=== PATIENT | female | born 1965 | race Caucasian/White ===

== ENCOUNTER → 2019-08-30 09:35 | Outpatient (CLI) | payer OTHER ==
--- NOTE | 2019-08-31 16:04 | EC ---
PATIENT:LILIANE HOWARD DATE OF SERVICE: 08/30/19 SEX: F MEDICAL RECORD: [id number] DATE OF : 61 [facility] AGE OF PAT[facility]: 54 ADMISSION DATE: 08/30/19 REFERRING PHYSICIAN: INTERPRETING PHYSICIAN: NAVEED HICKS MD ECHOCARDIOGRAM REPORT ECHO CHARGES 4 ECHO COMPLETE Date: 08/30/19 CLINICAL DIAGNOSIS: MURMUR//CARDIOMYOPATHY/ ABNORMAL EKG H/O HTN ECHOCARDIOGRAPHIC MEASUREMENTS (adult normal given) AC root (d.<3.7cm) 3.2 cm LV Septum d (<1.2 cm> 1.3 cm Valve Excursion 1.2 cm LV Septum (systole) 2.0 cm Left Atria (s.<4.0cm> 4.9 cm LVPW d(<1.2cm) 1.5 cm RV (d.<2.3cm) 3.5 cm LVPW (sytole) 1.8 cm LV diastole(<5.6CM) 7.4 cm MV E-F(>70mm/sec) cm LV systole 6.0 cm LVOT Diameter 2.0 cm MV exc.(>10mm) cm Est.ejection fraction (50-75%) % DOPPLER: LVIT cm/sec A 130 cm/sec E 191 cm/sec LA cm/sec RVSP 71.0 mmHg LVOT 91.0 cm/sec AOP1/2T m/s Asc. Ao 487 cm/sec RVOT 104 cm/sec RA cm/sec PA 100 cm/sec AV Gradient Peak 95.0 mmHg AV Mean 68.2 mmHg AV Area 0.5 cm MV Gradient Peak 18.3 mmHg MV Mean 7.0 mmHg MV Area cm COMMENTS: OP - HC Head Of Acquisitions: 1 LALI NICKY Ring Conductor: 3 Dr. Boone TAPE# PACS Pericardial Effusion N DATE OF SERVICE: Adequate 2D, color flow, spectral Doppler, and M-mode. LVH is present. LV internal dimensions are normal. LV is mildly globally hypo with EF reduced, estimated at 35% to 40%. Aortic valve is calcified with restriction of leaflet motion. Peak gradient of 95 putting this in severe range. Left atrium is dilated at 4.9 cm. Mitral valve shows no prolapse. Moderate MR. Right-sided chambers are grossly normal. Mild TR. ECHOCARDIOGRAM REPORT [id number] LILIANE HOWARD TRANSINT:[id number] Voice Confirmation ID: [id number] DOCUMENT ID: [id number] NAVEED HICKS MD at 1604 CC: [id number] DICTATION DATE: 08/31/19 1318 BINDERY MACHINE TENDER: 08/31/19 1539 DEP CLI 08/30/19 [place] [id number] [place] [id number]
== END | disposition home or self-care (01) ==
LOC: D.HCCECHO 08-10 10:00
PROVIDERS: ATTEND Internal Medicine Interventional Cardiology
DX: I35.0 Nonrheumatic aortic (valve) stenosis (principal)

== ENCOUNTER 2020-01-03 11:29 | Outpatient (CLI) | payer OTHER ==
[~2020-01-03] VITALS: Ht 167.6 cm; Wt 126.2 kg
--- NOTE | ~2020-01-03 | HEMODYNAMI ---
PATIENT:LILIANE HOWARD MEDICAL RECORD: [id number] : 61 LOCATION:[facility] ADMISSION DATE: 01/03/20 Generatedon:01/03/202013:50 Patient name: LILIAEN HOWARD Patient #: [id number] SSN: [id number] : 1965 Date of study: 01/03/2020 Page: Of Hemodynamic Procedure Report Patient Data Patient Demographics Procedure consent was obtained First Name: LILIANE Gender: Female Last Name: ANITA : 1965 Middle Initial: HELADIO Age: 54 year(s) Patient #: [id number] Race: SSN: [id number] Additional ID: [id number] Contact details [address]: [address] [place] [address] State: [place] City: [place] Zip code: [address] Past Medical History Allergies: No known allergies Admission Admission Data Admission Date: 01/03/2020 Admission Time: 11:29 Arrival Date: 01/03/2020 Arrival Time: 0:00 Admit Source: Other Insurance Payor: [facility] #: [id number] Height (in.): 67 BSA: 2.32 (m2) Height (cm.): 170.18 BMI: 43.07 (kg/m2) Weight (lbs.): 275 Weight (kg.): 124.74 Lab Results Lab Result Date: 01/03/2020 Lab Result Time: 0:00 Biochemistry Name Units Result Min Max BUN mg/dl 21 --(----)-* 7 18 Creatinine mg/dl 0.8 --(-*--)-- 0.6 1.3 eGFR ml/min 78 *-(----)-- 90 120 NONAFRICAN CBC Name Units Result Min Max Hematocrit % 39.8 -*(----)-- 42 54 Hemoglobin g/dl 12.4 *-(----)-- 13.5 17.5 Procedure Procedure Types Cath Procedure Diagnostic Procedure [facility] w/Coronaries Sedation Charges Moderate Sedation up to 15 minutes Procedure Description Procedure Date Procedure Date: 01/03/2020 Procedure Start Time: 13:21 Procedure End Time: 13:43 Procedure Staff Name Function Gaston Trujillo MD Performing Physician Sammi Roger RT Monitor Delaney Strauss RN Nurse Megan English RT Scrub Procedure Data Cath Procedure Fluoroscopy Diagnostic fluoroscopy Total fluoroscopy Time: 9.1 time: 9.1 min min Diagnostic fluoroscopy Total fluoroscopy dose: 873 dose: 873 mGy mGy Contrast Material Contrast Material Type Amount (ml) Isovue 370 36 Entry Location Entry Primary Successful Side Size Upsize Upsize Entry Closure Levi ccessful Closure Location (Fr) 1 (Fr) 2 (Fr) Remarks Device Remarks Radial Right 6 Fr Mechanical artery Short Compression Estimated blood loss: 5 ml Diagnostic catheters Device Type Used For End Catheter Placement DIAGNOSTIC [place] 110cm 5 Procedure Fr catheter ([id number]) DIAGNOSTIC AR MOD 5Fr Procedure Catheter ([id number]) Procedure Complications No complications Procedure Medications Medication Administration Route Dosage 0.9% NaCl I.V. 100 ml/hr Oxygen etCO2 Nasal cannula 2 l/min Lidocaine 2% added to field 20 Heparin Flush Bag added to field 2 bags (1000units/500ml NS) Radial Cocktail added to field 1 syringe (Verapamil 2mg/Nitro 400mcg/Heparin 1500units) Versed I.V. 2 mg Fentanyl I.V. 50 mcg Hemodynamics Rest BSA: 2.32 (m2) HGB: 12.4 (g/dl) O2 Consumption: Estimated: 202.24 (ml/min) O2 Co nsumption indexed: Estimated:87.17 (ml/min/m) Heart Rate: 47 (bpm) Snapshots Pre Cath Intra NCS Post Cath Vital Signs Time Heart Resp SPO2 etCO2 NIBP (mmHg) Rhythm Pain Sedation Rate (ipm) (%) (mmHg) Status Level (bpm) 13:09:30 89 33 96 26 125/81(122) NSR 0 (11) 10(A) , No pain 13:14:29 95 34 96 29.4 Measuring NSR 0 (11) 10(A) , No pain 13:19:10 92 25 97 33.9 Time NSR 0 (11) 10(A) Exceeded , No pain 13:22:25 93 18 95 33.9 131/82(96) NSR 0 (11) 10(A) , No pain 13:26:29 95 23 96 30.9 127/84(94) NSR 0 (11) 10(A) , No pain 13:30:36 93 32 95 32.4 119/73(88) NSR 0 (11) 10(A) , No pain 13:34:40 91 33 96 30.2 118/79(91) NSR 0 (11) 10(A) , No pain 13:38:44 90 26 97 33.2 129/80(97) NSR 0 (11) 10(A) , No pain 13:42:50 93 26 93 28.6 128/82(107) NSR 0 (11) 10(A) , No pain Medications Time Medication Route Dose Verified Delivered Reason Notes E ffectiveness by by 13:07:58 0.9% NaCl I.V. 100 Gaston Raia used for ml/hr Ronnie Carlos A procedure MD FRAGA 13:08:04 Oxygen etCO2 2 l/min Gaston Raia used for Nasal Ronnie Carlos A procedure cannula RN 13:08:08 Lidocaine 2% added 20ml Gaston Feldman for local to vial Ronnie Ronnie anesthetic field MD GAMINO 13:08:12 Heparin Flush added 2 bags Gaston Feldman used for Bag to Ronnie Ronnie procedure (1000units/500ml field MD GAMINO NS) 13:08:23 Radial Cocktail added 1 Gaston Feldman used for (Verapamil to syringe Ronnie Ronnie procedure 2mg/Nitro field MD GAMINO 400mcg/Heparin 1500units) 13:16:54 Versed I.V. 2 mg Gaston Raia for Ronnie Carlos A sedation MD FRAGA 13:17:00 Fentanyl I.V. 50 mcg Gaston Baltazar for Ronnie Carlos A sedation MD FRAGApower systems engineer Log Time Note 12:21:21 Informed consent obtained and on chart 12:22:14 Patient allergic to No known allergies 12:24:12 Diagnostic Cath Status : Elective 12:24:48 Arrival Date: 01/03/2020 12:00:00 AM 12:24:49 Admit Source: Other 12:25:02 Patient Height : 67 inches 12:25:06 Patient Weight : 275 lbs 12:25:15 Insurance Payor : [facility] 12:50:34 Lab Result : eGFR NONAFRICAN 78 ml/min 12:50:34 Lab Result : Hemoglobin 12.4 g/dl 12:50:34 Lab Result : BUN 21 mg/dl 12:50:34 Lab Result : Creatinine 0.8 mg/dl 12:50:34 Lab Result : Hematocrit 39.8 % 12:52:43 Risk of Mortality: 0.1 12:52:47 Risk of blood transfusion: 0.2 12:52:50 Risk of ADEN: 0.4 12:52:51 Alarms reviewed by R. N. 12:52:52 Sharps counted by scrub and verified by R.N. 12:52:56 Stress Test: no; N/A ? 12:52:58 Lab results completed and on chart. 12:53:14 H&P Date Dictated: 12/21/2019 Within 30 days and on chart.. 12:53:15 Pre-procedure instructions explained to patient. 12:53:16 Pre-op teaching completed and patient verbalized understanding. 12:53:18 Family in patients room. 12:53:20 Patient NPO since Midnight. 12:53:30 Procedure Status Elective Heart Cath (OP). 12:53:34 Megan English RT(R) (CV) sent for patient. Start room use. 12:53:36 Time tracking: Regular hours (M-F 7:00 - 5:00) 12:53:41 Plan of Care:Hemodynamics will remain stable., Cardiac rhythm will remain stable., Comfort level will be maintained., Respiratory function will remain adequate., Patient/ family verbilizes understanding of procedure., Procedure tolerated without complication., Recovers from procedure without complications.. 13:00:09 Patient received from Pre/Post Procedure Room to CCL 1 Alert and oriented. Tansferred to table in Supine position. 13:00:28 Warm blankets applied, and bridget hugger turned on for patient comfort. 13:00:28 Correct patient and procedure confirmed by team. 13:00:30 ECG and BP/O2 sat monitors applied to patient. 13:07:48 Vital chart was started 13:07:58 0.9% NaCl 100 ml/hr I.V. was administered by Delaney Strauss RN; used for procedure; Verbal order read back and verified. 13:08:04 Oxygen 2 l/min etCO2 Nasal cannula was administered by Delaney Carlos A RN; used for procedure; Verbal order read back and verified. 13:08:08 Lidocaine 2% 20ml vial added to field was administered by Gaston Trujillo MD; for local anesthetic; Verbal order read back and verified. 13:08:12 Heparin Flush Bag (1000units/500ml NS) 2 bags added to field was administered by Gaston Trujillo MD; used for procedure; Verbal order read back and verified. 13:08:23 Radial Cocktail (Verapamil 2mg/Nitro 400mcg/Heparin 1500units) 1 syringe added to field was administered by Gaston Trujillo MD; used for procedure; Verbal order read back and verified. 13:09:50 Full Disclosure recording started 13:09:54 Is the patient allergic to Iodine/contrast media? No. 13:09:57 Was the patient premedicated? N/A 13:09:59 Is patient on blood thinner?No 13:10:00 Patient diabetic? No. 13:10:01 If diabetic: On Metformin? N/A 13:10:04 Patient not . Patient is over age 55. 13:10:05 ----Pre-sedation anethsthesia assessment.---- 13:10:08 Previous problem with sedation/anesthesia? No ? 13:10:09 Snore? Yes 13:10:10 Sleep apnea? No 13:10:12 Deviated septum? No 13:10:14 Opens mouth fully? Yes 13:10:15 Sticks out tongue? Yes 13:10:17 Airway obstruction? No ? 13:10:25 Dentures? Yes TOP IN TIGHT 13:10:53 Pre procedure: right dorsailis pedis pulse 2+ Normal; easily identifiable; not easily obliterated 13:10:58 Patient pain scale 0/10 ?. 13:11:01 Modified German's test Ulnar < 7 seconds 13:11:08 IV patent on arrival in left antecubital with 0.9% NaCl at O. 13:11:13 Right Radial & Right Groin area was prepped with chlora-prep and draped in sterile fashion 13:11:17 Use device set Radial Dx or PCI 13:11:19 ACIST Syringe (40024) opened to sterile field. 13:11:20 Medline Cath Pack ([id number]) opened to sterile field. 13:11:20 Bag Decanter (2002) opened to sterile field. 13:11:21 ACIST Hand Control (35452) opened to sterile field. 13:11:21 ACIST Manifold (87045) opened to sterile field. 13:11:22 MBrace Wrist Support ([id number]) opened to sterile field. 13:11:24 EMERALD Guide Wire (914-851) opened to sterile field. 13:11:25 SHEATH 6FR RAIN (6550380) opened to sterile field. 13:14:52 --------ALL STOP TIME OUT------ 13:14:52 Final Timeout: patient, procedure, and site verified with staff and physician. All members of the team are in agreement. 13:14:54 Right Radial & Right Groin site verified by team. 13:14:58 Fire Safety Assessment: A--An alcohol-based skin anteseptic being used preoperatively., C--Open oxygen or nitrous oxide is being used., D--An ESU, laser, or fiber-optic light is being used. 13:15:02 Physical assessment completed. ASA score P 2 - A patient with mild systemic disease as per Gaston Trujillo MD. 13:15:06 2) 60-89 Mildly reduced kidney function, and other findings (as for stage 1) point to kidney disease. 13:15:09 Maximum allowable contrast dose (3.7 X eGFR X 0.75)216 ml. 13:15:13 Sedation plan: IV Moderate Sedation Medication:Versed, Fentanyl 13:15:47 Rhythm: sinus rhythm 13:16:29 Baseline sample Acquired. 13:16:54 Versed 2 mg I.V. was administered by Delaney Strauss RN; for sedation; Verbal order read back and verified. 13:17:00 Fentanyl 50 mcg I.V. was administered by Delaeny Strauss RN; for sedation; Verbal order read back and verified. 13:19:39 Baseline sample Acquired. 13:21:05 Procedure started. 13:21:22 Local anesthetic to right radial artery with Lidocaine 2% by Gaston Trujillo MD.INITIAL ACCESS ONLY 13:25:48 A 6 Fr Short sheath was inserted into the Right Radial artery 13:26:27 A DIAGNOSTIC [place] 110cm 5 Fr catheter (656138) was advanced over the wire and used for Procedure. 13:28:37 LCA angiography performed. 13:29:03 Injector settings: Ml/sec: 3, Volume: 6, 13:30:13 Catheter exchanged over wire. 13:30:31 A DIAGNOSTIC AR MOD 5Fr Catheter ([id number]) was advanced over the wire and used for Procedure. 13:31:37 RCA angiography performed. 13:32:00 ACCDominant side:Left 13:33:48 ROADRUNNER .035 260 glide wire (Z89529) opened to sterile field. 13:37:27 ROADRUNNER GLIDEWIRE wire advanced. 13:37:31 GUIDE 5FR AL2.0 catheter (OW5DM88) opened to sterile field. 13:40:55 UNABLE TO CANNULATE ACROSS THE VALVE NO LV DONE. 13:40:59 Catheter removed. 13:41:24 ZEPHYR REGULAR TR BAND (813646) opened to sterile field. 13:41:31 Sheath removed intact; hemostasis achieved with Mechanical Compression to the Right Radial artery. 13:41:33 Procedure ended.(Physican Out) 13:41:53 Fluoroscopy time 09.10 minutes. 13:42:01 Fluoroscopy dose: 873 mGy 13:42:01 Flurop Dose total: 873 13:42:09 Dose Area Product 72082 mGy/cm. 13:42:14 Contrast amount:Isovue 370 36ml. 13:42:16 Maximum allowable dose exceeded? No. 13:42:18 Sharps counted by scrub and verified by R.N. 13:42:22 [place] band inflated with 10cc of air. 13:42:24 Post Procedure Pulses reassessed and unchanged 13:42:27 Post procedure: right dorsailis pedis pulse 2+ Normal; easily identifiable; not easily obliterated. 13:42:30 Post-procedure physical assessment completed. ASA score P 2 - A patient with mild systemic disease as per Gaston Trujillo MD. 13:42:33 Post procedure rhythm: unchanged. 13:42:36 Estimated blood loss: 5 ml 13:42:37 Post procedure instruction explained to patient.Patient verbalizes understanding. 13:42:38 Patient needs reinforcement of post procedure teaching. 13:43:01 Procedure type changed to Cath procedure, Diagnostic procedure, LHC, LHC w/Coronaries, Sedation Charges, Moderate Sedation up to 15 minutes 13:43:27 Procedure and supply charges have been captured, reviewed, submitted and are correct. 13:43:30 Procedure Complication : No complications 13:43:32 Vital chart was stopped 13:43:34 [facility] Findings: mild to moderate CAD (<70%) 13:43:38 Operative report dictated upon procedure completion. 13:43:38 See physician's report for complete and final results. 13:43:42 Report given to Pre/Post Procedure Room. 13:43:46 Patient transfered to Pre/Post Procedure Room with Stretcher. 13:43:48 Procedure ended. 13:43:48 Full Disclosure recording stopped 13:43:53 End room use (Document Last) 13:44:12 End room use (Document Last) 13:44:31 End room use (Document Last) Device Usage Item Name Manufacture Quantity Catalog Hospital Part Current Minima l Lot# / Number Charge Number Stock Stock Serial# Code ACIST Acist 1 21901 813719 377046 237624 20 Syringe Medical (78705) Systems Inc Medline Medline 1 [id number] 663151 40102 670182 5 Cath Pack ([id number]) Bag Microtek 1 2001S 456463 24130 596041 5 Decanter Medical Inc. () ACIST Hand Acist 1 33914 944107 745727 251412 5 Control Medical (80254) Systems Inc ACIST Acist 1 73734 620255 607999 605727 5 Manifold Medical (98531) Systems Inc MBrace Advanced 1 140-0250-00 314008 88393 669723 5 Wrist Vascular Support Dynamics (475691376) EMERALD Cardinal 1 502-455 103276 598133 372728 5 Guide Wire Health (502-455) SHEATH 6FR Cardinal 1 2023524 346599 0824383 432455 5 [facility] (0180269) DIAGNOSTIC Terumo 1 40-5013 748993 616820 089260 5 [place] 110cm 5 Fr catheter (801577) DIAGNOSTIC Cardinal 1 [id number] 934232 932693 005031 15 AR MOD 5Fr Health Catheter (492423Y) [facility] 1 M63090 100083 116322 585005 5 .035 260 glide wire (H72525) GUIDE 5FR Medtronic 1 [id number] 929308 435212 090810 1 AL2.0 catheter (PI8QZ23) ZEPHYR Cardinal 1 730891 049269 8407043 495789 5 REGULAR TR Health BAND (009999) Signature Audit Cath[place]in Stage Time Signature Unsigned Intra-Procedure 01/03/2020 Sammi Roger 1:44:12 PM RT(R) Intra-Procedure 01/03/2020 Delaney Strauss 1:44:31 PM RN Intra-Procedure 01/03/2020 Gaston Peter 1:50:15 PM Deon [facility] [address] [place] [address]
[2020-01-03] MEDS ORDERED: LOSARTAN-HCTZ1 EAC1 PO (11:52)
[2020-01-03] MEDS ORDERED: BAYER CHEWABLE81 MG PO (11:52)
[2020-01-03] MEDS ORDERED: FER-IN-SOL DROP50 ML (11:54)
[2020-01-03] MEDS ORDERED: VOLTAREN75 MG PO (11:54)
[2020-01-03 12:09] VITALS: BP 130/85; Ht 167.6 cm; Wt 126.2 kg
[2020-01-03 12:27] LABS: BASOPHILS 0.5 % (0-2); HEMATOCRIT 39.8 % (36.0-48.0); HEMOGLOBIN 12.4 g/dL (12-16); IMMATURE GRANULOCYTES 0.1 % (0-5); LYMPHOCYTES 16.7 % (15-50); MCH 25.3 pg (26.0-34.0); MCHC 31.2 g/dL (31.0-37.0); MCV 81.1 fL (80.0-100.0); MEAN PLATELET VOLUME 10.5 fL (7.4-10.4); MONOCYTES 7.6 % (2-11); NEUTROPHILS 74.1 % (40-80); PLATELET COUNT 284 10x3/uL (130-400); RBC 4.91 10x6/uL (4.00-5.40); RDW 17.2 % (11.5-14.5); WBC 7.8 10x3/uL (4.8-10.8)
[2020-01-03 12:43] LABS: ALT (SGPT) 35 U/L (10-68); CALC OSMOLALITY 275 mosm/kg (275-300); CALCIUM 9.1 mg/dL (8.5-10.1); CARBON DIOXIDE 27.7 mmol/L (21.0-32.0); CHLORIDE - SERUM 102 mmol/L (98-107); CHOL - HDL RATIO 4.3 ratio (2.3-4.1); CHOLESTEROL, TOTAL 137 mg/dL (0-200); CREATININE - SERUM 0.8 mg/dL (0.6-1.3); GLUCOSE 117 mg/dL (74-106); HDL CHOLESTEROL 32 mg/dL (32-96); LDL CHOLESTEROL 86 mg/dL (0-100); LDL-HDL RATIO 2.7 ratio (1.5-3.5); POTASSIUM - SERUM 4.1 mmol/L (3.5-5.1); SODIUM 136 mmol/L (136-145); TRIGLYCERIDE 96 mg/dL (30-200); UREA NITROGEN 21 mg/dL (7-18); eGFR NON AFRICAN AMERICAN 78 mL/min (90-120)
--- NOTE | 2020-01-03 13:58 | NUR ---
DR. HICKS IN TO SPEAK WITH PT . DR. DAWKINS OFFICE CONTACTED FOR APPT.
--- NOTE | 2020-01-03 14:00 | NUR ---
REC'D TO ROOM 3 VIA STRETHCER, FROM SPEECH THERAPY ASSISTANT. MONITORS ESTAB. PT DROWSY, AT BS. SEE BEVERAGE DISTILLER.
--- NOTE | 2020-01-03 14:16 | NUR ---
R WRIST SITE C/D/I, NO S/S BLEEDING OR HEMATOMA. MARQUISE WITH DR. MCKNIGHT IN TO TALK TO PT - FOLLOW UP APPT CARD GIVEN TO PT.
--- NOTE | 2020-01-03 14:45 | NUR ---
R WRIST SITE C/D/I. 2 CC AIR REMOVED FROM Z BAND. VSS. PT DENIES NEEDS. ALARMS ON AND C/L IN REACH.
--- NOTE | 2020-01-03 15:00 | NUR ---
TOTAL OF 5CC AIR REMOVED FROM Z BAND. NO S/S BLEEDING OR HEMATOMA.
--- NOTE | 2020-01-03 15:15 | NUR ---
PT UP TO BR WITH ASSIST. R WRIST SITE C/D/I. GAIT STEADY. BACK TO BED, 2 MORE CC AIR REMOVED. WILL CONT CLOSE MONITORING.
--- NOTE | 2020-01-03 15:30 | NUR ---
ALL AIR REMOVED FROM Z BAND. NO S/S BLEEDING. PIV D/C'D INTACT - DSG APPLIED. PT ALLOWED UP TO GET DRESSED.
--- NOTE | 2020-01-03 15:47 | NUR ---
Z BAND OFF, NO BLEEDING. DSG AND ARM BOARD APPLIED. ALL DISCHARGE INSTRUCTIONS REVIEWED WITH PT AND . PT D/C'D VIA WC TO PRIVATE VEHICLE WITH ALL PAPER WORK AND BELONGINGS.
--- NOTE | 2020-01-04 08:16 | OP ---
PATIENT NAME: LILIANE HOWARD MEDICAL RECORD: [id number] :61 LOCATION:D.CAT ADMISSION DATE: SURGEON: NAVEED HICKS MD DATE OF OPERATION: 01/03/2020 PROCEDURE: Left heart catheterization, selective coronary angiography, right radial approach. CATHETERS: Radial sheath, Hampton catheter, AR, as well as an AL. Procedure was well tolerated. The patient was returned to [place]. Sheath was removed. TR band placed. FINDINGS: Left ventriculography not performed. Unable to cross the aortic valve, despite using AR, AL, indwelling Hampton catheter, and a regular wire. CORONARY ANATOMY: LEFT MAIN: Left main is free of disease. LAD: Small vessel, free of disease. CIRCUMFLEX: Left dominant system. Circumflex free of disease as marginal system. RIGHT CORONARY ARTERY: Rudimentary, free of disease. IMPRESSION: No critical . No evidence of obstructive coronary artery disease. TRANSINT:[id number] Voice Confirmation ID: [id number] DOCUMENT ID: [id number] NAVEED HICKS MD at 0816 CC: [id number] DICTATION DATE: 01/03/20 1353 CREDENTIALS SPECIALIST: 01/03/20 2204 DEP CLI 01/03/20 [facility] [address] [facility], [place] [address]
== END 2020-01-03 15:47 | disposition home or self-care (01) ==
LOC: D.CATH 11:29
PROVIDERS: ATTEND Internal Medicine Interventional Cardiology
DX: I49.3 Ventricular premature depolarization (principal); I35.0 Nonrheumatic aortic (valve) stenosis; I10 Essential (primary) hypertension; E78.5 Hyperlipidemia, unspecified

== ENCOUNTER 2020-01-10 08:34 | Outpatient (CLI) | payer OTHER ==
[~2020-01-10] VITALS: Ht 167.6 cm; Wt 124.5 kg
--- NOTE | ~2020-01-10 | HEMODYNAMI ---
PATIENT:LILIANE HOWARD MEDICAL RECORD: [id number] : 61 LOCATION:[facility] ADMISSION DATE: 01/10/20 Generatedon:01/10/202012:42 Patient name: LILIANE HOWARD Patient #: [id number] SSN: [id number] : 1965 Date of study: 01/10/2020 Page: Of Hemodynamic Procedure Report Patient Data Patient Demographics Procedure consent was obtained First Name: LILIANE Gender: Female Last Name: ANITA : 1965 Middle Initial: HELADIO Age: 54 year(s) Patient #: [id number] Race: SSN: [id number] Additional ID: [id number] Contact details [address]: [address] [place] [address] State: [place] City: [place] Zip code: [address] Past Medical History Allergies: No known allergies Admission Admission Data Admission Date: 01/10/2020 Admission Time: 8:34 Height (in.): 65.75 BSA: 2.29 (m2) Height (cm.): 167 BMI: 44.82 (kg/m2) Weight (lbs.): 275.58 Weight (kg.): 125 Procedure Procedure Types Cath Procedure Diagnostic Procedure NICOLLE Procedure Description Procedure Date Procedure Date: 01/10/2020 Procedure Start Time: 11:57 Procedure Staff Name Function Gaston Trujillo MD Performing Physician Parveen Torrez LEGAL MEDIATOR Additional personnel Annie Olson RT Monitor Delaney Strauss RN Nurse Juan Jose Fagan Residential Recycle Driver Procedure Data Cath Procedure Fluoroscopy Diagnostic fluoroscopy Total fluoroscopy Time: 0 time: 0 min min Diagnostic fluoroscopy Total fluoroscopy dose: 0 dose: 0 mGy mGy Estimated blood loss: 0 ml Procedure Complications No complications Procedure Medications Medication Administration Route Dosage 0.9% NaCl I.V. 100 ml/hr Oxygen etCO2 Nasal cannula 2 l/min Hurricaine [place] P.O. 2 Sprays Refer to Anesthesia Notes for Sedation Medications Hemodynamics Rest BSA: 2.29 (m2) HGB: 12.4 (g/dl) O2 Consumption: Estimated: 245.91 (ml/min) O2 Consumption indexed: Estimated:107.38 (ml/min/m) Heart Rate: 100 (bpm) Snapshots Pre Cath Intra NCS Post Cath Vital Signs Time Heart Resp SPO2 etCO2 NIBP (mmHg) Rhythm Pain Sedation Rate (ipm) (%) (mmHg) Status Level (bpm) 12:33:10 98 12 97 22.6 266/181(231) NSR 0 (11) 10(A) , No pain 12:35:27 100 21 97 24.8 121/108(116) NSR 0 (11) 5(A) , No pain 12:38:48 91 34 93 30.8 110/54(82) NSR 0 (11) 5(A) , No pain Medications Time Medication Route Dose Verified Delivered Reason Notes Effecti veness by by 12:27:54 0.9% NaCl I.V. 100 Gaston Baltazar used for ml/hr St Deon Strauss procedure MD FRAGA 12:28:02 Oxygen etCO2 2 Gaston Raia used for Nasal l/min St Deon Strauss procedure cannula MD FRAGA 12:28:15 Hurricaine P.O. 2 Gaston Torresyla for local [place] Sprays St Deon Strauss anesthetic MD FRAGA 12:28:23 Refer to Gaston Saini Anesthesia St Deon stephenson MD, CRNA Sedation Medications Procedure Log Time Note 12:00:36 Informed consent obtained and on chart 12:02:09 Procedure Status NICOLLE. 12:02:15 Time tracking: Regular hours (M-F 7:00 - 5:00) 12:02:19 Plan of Care:Hemodynamics will remain stable., Cardiac rhythm will remain stable., Comfort level will be maintained., Respiratory function will remain adequate., Patient/ family verbilizes understanding of procedure., Procedure tolerated without complication., Recovers from procedure without complications.. 12:03:38 Delaney Strauss RN sent for patient. Start room use. 12:04:02 H&P Date Dictated: 12/21/2019 Within 30 days and on chart., H&P Addendum completed by physician on day of procedure. (MUST COMPLETE FOR ALL OUTPATIENTS). 12:04:10 Patient allergic to No known allergies 12:17:31 Patient Weight : 275.58 lbs 12:17:35 Patient Height : 65.75 inches 12:22:43 Parveen Torrez CRNA present and monitoring patient for TIVA. 12::54 Patient arrived from Pre/Post Procedure Room to CCL 3. Patient remains on bed/stretcher for procedure. 12::55 Warm blankets applied, and bridget hugger turned on for patient comfort. 12::56 Correct patient and procedure confirmed by team. 12::56 ECG and BP/O2 sat monitors applied to patient. 12:: Vital chart was started 12::54 0.9% NaCl 100 ml/hr I.V. was administered by Delaney Strauss RN; used for procedure; Verbal order read back and verified. 12:28:02 Oxygen 2 l/min etCO2 Nasal cannula was administered by Delaney Strauss RN; used for procedure; Verbal order read back and verified. 12:28:15 Hurricaine [place] 2 Sprays P.O. was administered by Delaney Strauss RN; for local anesthetic; Verbal order read back and verified. 12::23 Refer to Anesthesia Notes for Sedation Medications was administered by Parveen Torrez CRNA; ; Verbal order read back and verified. 12::37 Baseline sample Acquired. 12::42 Rhythm: sinus tachycardia 12::44 Full Disclosure recording started 12::44 Pre-procedure instructions explained to patient. 12::44 Pre-op teaching completed and patient verbalized understanding. 12:28:46 Family in patients room. 12:28:48 Patient NPO since Midnight. 12:28:52 Is the patient allergic to Iodine/contrast media? No. 12:28:53 Is patient on blood thinner?No 12:28:56 Patient diabetic? No. 12:28:59 Previous problem with sedation/anesthesia? No ? 12:29:00 Snore? Yes 12:29:01 Sleep apnea? No 12:29:03 Deviated septum? No 12:29:03 Opens mouth fully? Yes 12:29:05 Sticks out tongue? Yes 12:29:07 Airway obstruction? No ? 12:29:12 Dentures? Yes OUT 12:29:21 IV patent on arrival in left hand with 0.9% NaCl at [facility]. 12:29:25 Lab results completed and on chart. 12:29:28 Alarms reviewed by R. N. 12::32 Sharps counted by scrub and verified by R.N. 12:29:36 --------ALL STOP TIME OUT------ ::36 Final Timeout: patient, procedure, and site verified with staff and physician. All members of the team are in agreement. 12::42 Physical assessment completed. ASA score P 3 - A patient with severe systemic disease as per Gaston Trujillo MD. 12:29:46 Sedation plan: TIVA Medication:Propofol 12:30:09 NICOLLE 12:30:12 Juan oJse [place] Patient Accounts Manager present for NICOLLE. 12:30:16 NICOLLE started. 12:36:31 NICOLLE completed. 12:36:35 Procedure ended.(Physican Out) 12:37:34 Fluoroscopy time 00.00 minutes. 12:37:36 Fluoroscopy dose: 0 mGy 12:37:36 Flurop Dose total: 0 12:37:38 Dose Area Product 0 mGy/cm. 12:38:48 Post-procedure physical assessment completed. ASA score P 3 - A patient with severe systemic disease as per Gaston Trujillo MD. 12:38:51 Post procedure rhythm: sinus rhythm 12:38:53 Estimated blood loss: 0 ml 12:38:54 Post procedure instruction explained to patient.Patient verbalizes understanding. 12:38:55 Patient needs reinforcement of post procedure teaching. 12:39:10 Procedure and supply charges have been captured, reviewed, submitted and are correct. 12:39:14 Procedure Complication : No complications 12:40:01 NICOLLE Findings: other (see operative note) 12:41:23 Vital chart was stopped 12:41:26 Operative report dictated upon procedure completion. 12:41:26 See physician's report for complete and final results. 12:41:28 Report given to Pre/Post Procedure Room. 12:41:30 Patient transfered to Pre/Post Procedure Room with Bed. 12:41:35 End room use (Document Last) 12:41:46 End room use (Document Last) 12:42:09 End room use (Document Last) Signature Audit [place] Stage Time Signature Unsigned Intra-Procedure 01/10/2020 Annie Olson 12:41:46 PM RT(R) Intra-Procedure 01/10/2020 Delaney Strauss 12:42:10 PM RN Intra-Procedure 01/10/2020 Gaston Peter 12:42:33 PM Deon GAMINO [facility] [address] [place] [address]
[~2020-01-10 08:34] MED LIST: BAYER CHEWABLE81 MG PO; FER-IN-SOL DROP50 ML; LOSARTAN-HCTZ1 EAC1 PO; VOLTAREN75 MG PO
[2020-01-10 11:41] VITALS: BP 113/74; Ht 167.6 cm; Wt 124.5 kg
[2020-01-10 12:10] LABS: ANION GAP 12.4 mmol/L (8-16); CALCIUM 9.5 mg/dL (8.5-10.1); CARBON DIOXIDE 26.6 mmol/L (21.0-32.0); CREATININE - SERUM 0.9 mg/dL (0.6-1.3)
[2020-01-10 12:11] LABS: HEMATOCRIT 41.5 % (36.0-48.0); HEMOGLOBIN 12.9 g/dL (12-16); LYMPHOCYTES 14.3 % (15-50); MCH 24.7 pg (26.0-34.0); MCHC 31.1 g/dL (31.0-37.0); MCV 79.3 fL (80.0-100.0); MEAN PLATELET VOLUME 10.7 fL (7.4-10.4); NEUTROPHILS 79.9 % (40-80); PLATELET COUNT 276 10x3/uL (130-400); RBC 5.23 10x6/uL (4.00-5.40); RDW 16.7 % (11.5-14.5); WBC 8.8 10x3/uL (4.8-10.8)
--- NOTE | 2020-01-10 12:45 | NUR ---
REC TO ROOM VIA STRETCHER FROM PROTECTIVE SIGNAL OPERATOR. MONITORING INITIATED. HR NSR 87, RR 20, SAT 98% 2LNC, BP 98/68
--- NOTE | 2020-01-10 13:15 | NUR ---
BP 103/67, NSR 84, CHIQUITA SIPS OF WATER AND ICE CHIPS WITHOUT DIFFICULTY. DECLINES FOOD AT THIS TIME.
--- NOTE | 2020-01-10 13:37 | NUR ---
MONITORING DC, IV DC TIP INTACT. DRESSING W HELP OF .
--- NOTE | 2020-01-10 13:45 | NUR ---
DISCHARGE TEACHING REVIEWED W AND PT. DC HOME VIA WHEELCHAIR TO PRIVATE VEHICLE. PT HAS ALL BELONGINGS.
--- NOTE | 2020-01-11 10:37 | TEE ---
PATIENT:LILIANE HOWARD MEDICAL RECORD: [id number] LOCATION:D.[facility] AGE OF PATIENT: 54 ADMISSION DATE: 01/10/20 SEX: F REFERRING PHYSICIAN: INTERPRETING PHYSICIAN: NAVEED HICKS MD TRANSESOPHAGEAL ECHOCARDIOGRAM Date: 01/10/20 NICOLLE CHARGE Y INDICATIONS: BICUSPID AORTIC VALVE/AI/ MR/CARDIOMYOPATHY PREMEDICATIONS: PATIENT'S RESPONSE PROCEDURE DOPPLER MEASUREMENTS: LVIT LA PA RA LVOT RVOT Asc. Ao AV Gradient Peak AV Mean AV Area MV Gradient Peak MV Mean MV Area INTERPRETATION: Doppler: 2-D: COLOR FLOW DOPPLER NORMAL SALINE STUDY: MISCELLANOUS: DIAGNOSIS: PLAN: Ux Specialist:3 Dr. Boone Groover And Turner: 1 LALI SAUNDERS COMMENTS: DATE OF SERVICE: 01/10/2020 TRANSESOPHAGEAL NOTE DESCRIPTION OF PROCEDURE: After general sedation with TIVA via anesthesia, transesophageal Omniplane probe was placed in the distal esophagus and the proximal stomach without difficulty. FINDINGS: LVH appears present. LV internal dimensions are mildly dilated. LV TRANSESOPHAGEAL ECHOCARDIOGRAM REPORT [id number] ANITASANDERSON is globally hypokinetic with reduced EF 30% to 35%. Aortic valve obviously bicuspid with restriction of valve motion to critical degree. Trivial AI. Color flow imaging, left atrium appears mildly dilated. Mitral valve shows no prolapse with moderate severe MR. Right-sided chambers appear grossly normal. Moderate MR. At the end of the procedure, probe was turned posterior and this showed no atherosclerotic debris in the descending aorta. TRANSINT:[id number] Voice Confirmation ID: [id number] DOCUMENT ID: [id number] at 1037 CC: [id number] DICTATION DATE: 01/10/20 1246 NON FERROUS MATERIAL HANDLER: 01/10/20 1945 DEP CLI 01/10/20 [place] [address]
== END 2020-01-10 13:45 | disposition home or self-care (01) ==
LOC: D.CATH 08:34 → D.ECHO 08:34 → D.CATH 13:45
PROVIDERS: Internal Medicine Interventional Cardiology; ATTEND Thoracic Surgery (Cardiothoracic Vascular Surgery)
DX: I35.0 Nonrheumatic aortic (valve) stenosis (principal); I34.0 Nonrheumatic mitral (valve) insufficiency; I42.0 Dilated cardiomyopathy; I49.3 Ventricular premature depolarization; I10 Essential (primary) hypertension; E78.5 Hyperlipidemia, unspecified

== ENCOUNTER 2020-01-11 11:44 | Inpatient (IN) | payer OTHER ==
[~2020-01-11] VITALS: Ht 167.6 cm; Wt 138.2 kg
[2020-01-12] MEDS ORDERED: STOOL SOFTENER100 M1 PO (08:14)
[2020-01-12 10:32] LABS: HEMATOCRIT 42.8 % (36.0-48.0); HEMOGLOBIN 13.3 g/dL (12-16); MCH 24.8 pg (26.0-34.0); MCHC 31.1 g/dL (31.0-37.0); MCV 79.9 fL (80.0-100.0); MEAN PLATELET VOLUME 10.5 fL (7.4-10.4); NEUTROPHILS 78.5 % (40-80); PLATELET COUNT 282 10x3/uL (130-400); RBC 5.36 10x6/uL (4.00-5.40); RDW 16.9 % (11.5-14.5); WBC 9.4 10x3/uL (4.8-10.8)
[2020-01-12 10:41] LABS: ALBUMIN 3.6 g/dL (3.4-5.0); ANION GAP 13.3 mmol/L (8-16); BILIRUBIN - TOTAL 0.79 mg/dL (0.2-1.3); CALCIUM 9.4 mg/dL (8.5-10.1); CARBON DIOXIDE 28.8 mmol/L (21.0-32.0); PHOSPHOROUS 3.9 mg/dL (2.5-4.9); POTASSIUM - SERUM 4.1 mmol/L (3.5-5.1); PROTEIN - SERUM 7.7 g/dL (6.4-8.2); T4 THYROXIN - FREE 1.63 ng/dL (0.76-1.46); THYROID STIMULATING HORMONE 2.17 uIU/mL (0.36-3.74); URIC ACID 6.2 mg/dL (2.6-7.2)
[2020-01-12 10:59] LABS: INR 1.06 (0.85-1.17); PROTIME 13.1 SECONDS (11.6-15.0)
[2020-01-12 11:01] LABS: APTT 26.5 SECONDS (22.8-39.4)
[2020-01-12 11:02] LABS: BACTERIA MODERATE /hpf (NEGATIVE); BILIRUBIN NEGATIVE (NEGATIVE); GLUCOSE NEGATIVE (NEGATIVE); KETONE NEGATIVE (NEGATIVE); NITRITE NEGATIVE (NEGATIVE); RED CELLS - URINE OCC /hpf (0-5); SPECIFIC GRAVITY 1.015 (1.005-1.020)
[2020-01-13 14:00] LABS: BILIRUBIN NEGATIVE (NEGATIVE); GLUCOSE NEGATIVE (NEGATIVE); KETONE NEGATIVE (NEGATIVE); NITRITE NEGATIVE (NEGATIVE); RED CELLS - URINE 0-5 /hpf (0-5); SPECIFIC GRAVITY 1.015 (1.005-1.020); UROBILINOGEN NORMAL (NORMAL); WHITE CELLS - URINE RARE /hpf (NEGATIVE)
[2020-01-13 14:01] LABS: BACTERIA FEW /hpf (NEGATIVE); EPITHELIAL CELLS RARE /hpf (0-5); HYALINE CAST RARE /lpf (NONE SEEN)
[2020-01-18] VITALS (49 sets, daily range): BP systolic 94–129; BP diastolic 55–93; BMI 44.1; BMI 45.1
[2020-01-18] MEDS ORDERED: SMZ-TMP DS 800-1 TAB PO (05:44)
[2020-01-18 10:37] LABS: INR 1.59 (0.85-1.17); PROTIME 18.8 SECONDS (11.6-15.0)
--- NOTE | 2020-01-18 12:00 | NUR ---
PT RECIEVED TO CVO6. VENT PER ETT. MAC AND LEVO BEING TITRATED TO MAINTAIN BP. MILNIRONE, PLASMALYTE INFUSING AT SET RATE. INSULIN GTT. SCDS/TEDS IN USE. R IJ RIDDHI WITH ARISTEO. CVP AND KASEY. PIV L HAND. MIDLINE STERNAL DRSG CDI. CT X 2 SUBSTERNAL WITH LEAK NOTED. CRITICORE RAMSEY TO GRAVITY. URINE CONCENTRATED. PT OPENS EYES TO VOICE. DENIES PAIN. 1:1 NURSING CARE.
--- NOTE | 2020-01-18 13:05 | NUR ---
ABG RESULT SENT TO DR MCKNIGHT. ORDER RECIEVED TO INCREASE VENT RATE TO 18, REPEAT ABG AND GIVE KCL 20MEG.
[2020-01-18 13:22] LABS: INR 1.48 (0.85-1.17); PROTIME 17.8 SECONDS (11.6-15.0)
--- NOTE | 2020-01-18 13:50 | NUR ---
REPEAT ABG SENT TO DR MCKNIGHT. ORDER RECIEVED TO INCREASE TV TO 550, DECRESE O2 TO 80%, GIVE A DOSE OF MORPHINE AND WEAN O2 TO KEEP SAT GREATER THAN 92%. UPDATED RT.
--- NOTE | 2020-01-18 14:30 | NUR ---
BP TRENDING DOWN. TITRATING MAC AND LEVO UP BUT BP IS NOT RESPONDING VERY WELL. DR MCKNIGHT NOTIFIED AND ORDER RECIEVED FOR FLUID BOLUS.
--- NOTE | 2020-01-18 17:20 | NUR ---
DR MCKNIGHT NOTIFIED OF ABG RESULT. SPONTANEOUS BREATHING TRIAL STARTED.
--- NOTE | 2020-01-18 17:41 | NUR ---
RECEIVED PATIENT [id number] AND PLACED ON VENT AT 12/500/100%/5. AT 1255 DR. MCKNIGHT INCREASED RATE TO 18 TO HELP BLOW OFF CO2 LEVEL AND THEN INCREASED HER TIDAL VOLUME TO 550. AT 1630 DECREASED FIO2 TO 40% AND AT 1715 DECREASED RATE BACK TO 12 AFTER ABG RESULTS. PATIENT STABLE AT THIS TIME. AT 1730 SWITCHED PATIENT TO CPAP 10/5 40%. PATIENT HAS MAINTAIN TIDAL VOLUME AT 519ML AND RATE 25 RSBI 46. WILL PASS WEAN PROCESS OVER TO NIGHT THERAPIST TO CONTINUE THE WEANING PARAMETERS.
--- NOTE | 2020-01-18 18:05 | NUR ---
DR MCKNIGHT NOTIFIED OF PT DOING WELL ON TRIALS. ABG ORDERED.
--- NOTE | 2020-01-18 18:15 | NUR ---
ABG SENT TO DR MCKNIGHT. ORDER RECIEVED TO EXTUBATE AND GIVE ANOTHER 20 MEQ OF KCL.
--- NOTE | 2020-01-18 18:30 | NUR ---
PT IS EXTUBATED AND ON 4L NC. ORDER RECIEVED TO LEAVE SWAN UNTIL AM AND DO NOT DANGLE PT.
--- NOTE | 2020-01-18 20:22 | NUR ---
PT DAUGHTER ARON CALLED PHONE, PT UPDATED, NO FURTHER NEEDS AT THIS TIME
--- NOTE | 2020-01-18 23:17 | NUR ---
REASSESSMENT COMPLETE PER FLOW SHEET, NO ACUTE CHANGES FROM PRIOR ASSESSMENT, PT AWAKE AND ALERT, SIPS OF ICE WATER GIVEN PER REQUEST, REPOSITIONED FOR COMFORT, VSS, ALL DRSG'S C/D/I, WILL CONTINUE TO MONITOR
[2020-01-19] VITALS (79 sets, daily range): BP systolic 87–117; BP diastolic 52–71; Ht 167.6 cm; Wt 138.2 kg
--- NOTE | 2020-01-19 03:00 | NUR ---
REASSESSMENT COMPLETE PER FLOW SHEET, NO ACUTE CHANGES FROM PRIOR ASSESSMENT, PT AWAKE AND ALERT x4, REPOSITIONED FOR COMFORT, SIPS ICE WATER PER REQUEST, NO DIFFICULTY SWALLOWING NOTED, PT B/P LABILE TITRATING MEDS PER MAR/ORDERS, ALL OTHER VSS, WILL CONTINUE TO MONITOR
[2020-01-19 05:41] LABS: HEMATOCRIT 30.3 % (36.0-48.0); HEMOGLOBIN 9.2 g/dL (12-16); MCH 24.8 pg (26.0-34.0); MCHC 30.4 g/dL (31.0-37.0); MCV 81.7 fL (80.0-100.0); MEAN PLATELET VOLUME 10.2 fL (7.4-10.4); RBC 3.71 10x6/uL (4.00-5.40); RDW 16.7 % (11.5-14.5); WBC 17.5 10x3/uL (4.8-10.8)
[2020-01-19 06:04] LABS: ALBUMIN 2.3 g/dL (3.4-5.0); ANION GAP 10.7 mmol/L (8-16); BILIRUBIN - TOTAL 0.62 mg/dL (0.2-1.3); CALCIUM 7.2 mg/dL (8.5-10.1); CARBON DIOXIDE 24.7 mmol/L (21.0-32.0); CREATININE - SERUM 1.2 mg/dL (0.6-1.3); POTASSIUM - SERUM 4.4 mmol/L (3.5-5.1); PROTEIN - SERUM 4.8 g/dL (6.4-8.2)
--- NOTE | 2020-01-19 08:33 | MORECARE ---
CASE MANAGEMENT DISCHARGE SUMMARY PATIENT: LILIANE HOWARD UNIT: [id number] ADM DATE: 01/18/20 AGE: 54 : 61 SEX: F ROOM/BED: [facility] AUTHOR: ARNULFO BRYAN PHYSICIAN: REFERRING PHYSICIAN: SHUN MCKNIGHT MD DATE OF SERVICE: 01/19/20 Discharge Plan Patient Name: LILIANE HOWARD Facility: [facility]:[place] : 1965 Planned Disposition: Home Anticipated Discharge Date: Discharge Date: Expected LOS: Initial Reviewer: [email or web address] Initial Review Date: 01/18/2020 Generated: 01/19/20 9:33 am DCPIA - Discharge Planning Initial Assessment Updated by [email or web address]: Yissel Mora on 01/19/20 8:33 am * Is the patient Alert and Oriented? Yes * How many steps to enter\exit or inside your home? 0/0 * PCP DR LOUISE * Pharmacy [facility] IN [place] * Preadmission Environment Home with Family * ADLs Independent * Equipment Other * Other Equipment SHOWER SEAT. HAS RAMP FOR HOME ENTRY * List name and contact numbers for known caregivers / representatives who currently or will assist patient after discharge: FESTUS [phone] WORK [phone] JOSE M BENEDICT DTR [phone] * Verbal permission to speak to the caregivers and representatives has been obtained from the patient. Yes * Community resources currently utilized None * Additional services required to return to the preadmission environment? Yes * Can the patient safely return to the preadmission environment? No * Has this patient been hospitalized within the prior 30 days at any hospital? No Patient Name: LILIANE HOWARD Page [id number] at 0833 All edits/amendments must be made on the electronic document DICTATION DATE: 01/19/20832 GOVERNMENT AFFAIRS SPECIALIST: NOAH 01/19/20832 RPT#: [id number] DC DATE: STATUS: ADM IN [facility] [address] [place] [address] END OF REPORT
--- NOTE | 2020-01-19 08:55 | NUR ---
ARISTEO BAIRD AT THIS TIME PER ORDER. PT TOLERATED WELL.
--- NOTE | 2020-01-19 10:06 | MORECARE ---
CASE MANAGEMENT DISCHARGE SUMMARY PATIENT: LILIANE HOWARD UNIT: [id number] ADM DATE: 01/18/20 AGE: 54 : 61 SEX: F ROOM/BED: [facility] AUTHOR: ARNULFO BRYAN PHYSICIAN: REFERRING PHYSICIAN: SHUN MCKNIGHT MD DATE OF SERVICE: 01/19/20 Discharge Plan Patient Name: LILIANE HOWARD Facility: [facility]:[place] : 1965 Planned Disposition: Home Anticipated Discharge Date: Discharge Date: Expected LOS: Initial Reviewer: [email or web address] Initial Review Date: 01/18/2020 Generated: 01/19/20 11:05 am Comments DCP- Discharge Planning Updated by [email or web address]: Yissel Mora on 01/19/20 9:[address] Patient Name: LILIANE HOWARD Admission Status: Elective Accout number: [id number] Admission Date: 01-18-2020 : 1965 Admission Diagnosis: Attending: SHUN MCKNIGHT Current LOS: 1 Anticipated DC Date: Planned Disposition: Home Primary Insurance: [employer]ER Discharge Planning Comments: CM met with patient to complete initial dc planning assessment. CM educated patient on the CM role and verbal consent given by patient to complete assessment. CM verified patient's address, phone number, and emergency contact phone numbers. Patient lives at home with spouse Myron [phone]. At discharge patient plans to return and feels this is a safe discharge. CM discussed availability of home health, rehab services, and medical equipment. ARLENE was signed for any IP rehab, HH, and DME providers [facility] Patient claims to be independent prior to admission, and plans to return home independent. Patient denied known discharge needs at this time. Transportation provider at discharge will be her Myron. CM will continue to follow and will assist as needed with dc plans/needs. Kinder Teacher: Yissel Mora DCPIA - Discharge Planning Initial Assessment Updated by [email or web address]: Yissel Mora on 01/19/20 8:33 am * Is the patient Alert and Oriented? Yes * How many steps to enter\exit or inside your home? 0/0 * PCP DR LOUISE * Pharmacy [facility] IN [place] * Preadmission Environment Home with Family * ADLs Independent * Equipment Other * Other Equipment SHOWER SEAT. HAS RAMP FOR HOME ENTRY * List name and contact numbers for known caregivers / representatives who currently or will assist patient after discharge: MYRON [phone] WORK [phone] JOSE M BENEDICT DTR [phone] * Verbal permission to speak to the caregivers and representatives has been obtained from the patient. Yes * Community resources currently utilized None * Additional services required to return to the preadmission environment? Yes * Can the patient safely return to the preadmission environment? No * Has this patient been hospitalized within the prior 30 days at any hospital? No Coverage Notice Reviewer: [email or web address] Aurea Mora Notice Issued Date-Time: 01/19/2020 8:20 Notice Type: Patient Choice Letter Notice Delivered To: Patient Relationship to Patient: Platen Press Operator Name: Delivery Method: HAND - Hand Delivered Yolanda Days: Prior Verbal Notification: Recipient Understood Notice: Yes Recipient Signature: Yes Med Rec Note Co-signed by Attending: Coverage Notice Comment: ARLENE SIGNED FOR ANY IP REHAB, HH, OR O2 DME Last DP export: 01/19/20 7:33 am Patient Name: LILIANE HOWARD Page [phone] at 1006 All edits/amendments must be made on the electronic document DICTATION DATE: 01/19/20 1005 ETCH OPERATOR SEMICONDUCTOR WAFERS: NOAH 01/19/20 1005 RPT#: [id number] DC DATE: STATUS: ADM IN [facility] [address] [place] [address] END OF REPORT
--- NOTE | 2020-01-19 10:50 | NUR ---
DR MCKNIGHT AT BEDSIDE. ORDERS RECIEVED TO DC MILNIRONE AND PLASMALYTE AND START WEANING LEVO, PULL SWAN AND THEN DANGELE PT.
--- NOTE | 2020-01-19 11:30 | NUR ---
ARISTEO CONTI'Jordan BY KRISTEN, RN THEN PT SAT UP ON SIDE OF BED. TOLERATED WELL.
--- NOTE | 2020-01-19 15:30 | NUR ---
LEVO TITRATED OFF. PTS HR IS TRENDING DOWN. DENIES NEEDS
--- NOTE | 2020-01-19 18:20 | NUR ---
TITRATING MAC DOWN.
--- NOTE | 2020-01-19 19:15 | NUR ---
MAC GTT IS OFF PT IS MAINTAINING SBP >100.
--- NOTE | 2020-01-19 23:00 | NUR ---
REASSESSMENT COMPLETE, NO ACUTE CHANGES FROM PRIOR ASSESSMENT, PT RESTING COMFORTABLY IN BED, NO ACUTE S/S OF DISTRESS NOTED, PT DANGLED ON BEDSIDE PER ORDERS AND TOLLERATED WELL, VSS, REPOSITIONED FOR COMFORT, HOB ELEVATED, CALL LIGHT IN REACH, BED ALARM ON, WILL CONTINUE TO MONITOR
[2020-01-20] VITALS (22 sets, daily range): BP systolic 85–117; BP diastolic 50–80
--- NOTE | 2020-01-20 03:07 | NUR ---
REASSESSMENT COMPLETE, NO ACUTE CHANGES FROM PRIOR ASSESSMENT, PT AWAKE AND ALERT x4, DANGLED ON BEDSIDE PER ORDERS, REPOSITIONED FOR COMFORT, PT TOLLERATED WELL, LARGE CUP ICE WATER GIVEN PER REQUEST, CALL LIGHT IN REACH WILL CONTINUE TO MONITOR
[2020-01-20 03:56] LABS: MAGNESIUM - SERUM 2.2 mg/dL (1.8-2.4); POTASSIUM - SERUM 4.7 mmol/L (3.5-5.1)
[2020-01-20 05:43] LABS: HEMATOCRIT 28.7 % (36.0-48.0); HEMOGLOBIN 8.8 g/dL (12-16); MCH 24.9 pg (26.0-34.0); MCHC 30.7 g/dL (31.0-37.0); MCV 81.1 fL (80.0-100.0); MEAN PLATELET VOLUME 10.6 fL (7.4-10.4); RBC 3.54 10x6/uL (4.00-5.40); RDW 16.8 % (11.5-14.5)
[2020-01-20 06:11] LABS: ALBUMIN 2.3 g/dL (3.4-5.0); ANION GAP 10.8 mmol/L (8-16); BILIRUBIN - TOTAL 0.66 mg/dL (0.2-1.3); CALCIUM 7.9 mg/dL (8.5-10.1); CARBON DIOXIDE 24.5 mmol/L (21.0-32.0); CREATININE - SERUM 1.3 mg/dL (0.6-1.3); POTASSIUM - SERUM 4.3 mmol/L (3.5-5.1); PROTEIN - SERUM 5.3 g/dL (6.4-8.2)
--- NOTE | 2020-01-20 07:57 | OP ---
PATIENT NAME: LILIANE HOWARD MEDICAL RECORD: [id number] :[birth year] [facility] ADMISSION DATE:01/18/20 SURGEON: CARLOS MCKNIGHT MD DATE OF OPERATION: 01/18/2020 SURGEON: Carlos Mcknight MD PROCEDURE PERFORMED: Aortic valve replacement (21 mm pericardial bioprosthesis). PREOPERATIVE DIAGNOSES: Severe aortic stenosis, congenital bicuspid aortic valve; dilated cardiomyopathy, mitral regurgitation. POSTOPERATIVE DIAGNOSES: Severe aortic stenosis, congenital bicuspid aortic valve; dilated cardiomyopathy, mitral regurgitation with minimal mitral regurgitation. ANESTHESIA: General endotracheal anesthesia. ESTIMATED BLOOD LOSS: Total cardiopulmonary bypass with Cell Saver retransfusion. SPECIMENS: Bicuspid aortic valve leaflets. COMPLICATIONS: None. CONDITION: Stable. DISPOSITION: ICU. OPERATIVE FINDINGS: 1. Transesophageal echocardiography with a normotensive patient revealed good mitral valve structure and function with only mild mitral regurgitation. After aortic valve replacement, the left atrial size was decreased and there was minimal mitral regurgitation in a normotensive patient with a normally filled heart. The ejection fraction was 40%, slightly improved after separation from cardiopulmonary bypass on Primacor. There was elevated pulmonary artery pressures prior to surgery about 60/32. 2. The patient had a large fatty heart. The aortic valve was congenitally bicuspid with coronary ostia by 180 degrees and a low left main coronary ostium about 4 mm above the valve annulus. This was not obstructed by placement of the low point of the bioprosthesis and there was demonstrated flow by transesophageal echocardiography after separation from cardiopulmonary bypass. 3. Persistent left superior vena cava. OPERATIVE INDICATION: Congenital bicuspid aortic valve with severe stenosis and moderate mitral regurgitation. OPERATIVE PROCEDURE IN DETAIL: The patient was brought to the operative suite. General anesthesia was obtained, the patient was prepped and draped. Medial sternotomy incision was made. Subcutaneous tissue was divided by electrocautery. Sternum was divided with a saw. Pericardium was opened. Heparin was given. The patient had a persistent left superior vena cava. Aorta was cannulated. Dual stage venous cannula was inserted. After activated OPERATIVE REPORT [id number] LILIANE HOWARD clotting time was appropriately elevated, the patient was placed on cardiopulmonary bypass. The left superior vena cava was visualized. The decision was made to use antegrade only cardioplegia. As it was a small superior vena cava, we continued bicaval cannulation and the patient was cooled, crossclamp was placed. Cardioplegia was given antegrade. Aortic root was opened. Valve was visualized, debrided. There was a good bit of irregular calcification extending up from the inferior leaflet, pledgeted valve sutures were placed from the ventricular to aortic side. Valve was sized, carefully lowered into place, tied. Aortotomy was closed. The patient was de-aired. Heart resumed spontaneous rhythm after removal of the cross clamp. The left ventricular vent had been placed that was removed. The patient was stable, weaned from cardiopulmonary bypass. The patient was decannulated. The cannula sites were oversewn. Protamine was given. Hemostasis was assured. A drain was placed in the mediastinum. Atrial and ventricular pacing wires were placed. Sternum was closed with wires. Fascia was closed. Subcutaneous tissue was closed. Skin was closed. Dermabond was placed. The needle and sponge counts were reported as correct. The patient was taken to ICU in stable condition. TRANSINT:[id number] Voice Confirmation ID: [id number] DOCUMENT ID: [id number] 01/20/2020 Edited for correction of rajesh CLARK. CARLOS MCKNIGHT MD at 0757 CC: NAVEED HICKS MD and KEVIN LOUISE MD [id number] DICTATION DATE: 01/18/20 1144 SOMMELIER: 01/18/20 1323 ADM IN [facility] [address] [place] [address]
--- NOTE | 2020-01-20 08:14 | NUR ---
A-LINE REMOVED PER DOCTOR MCKNIGHT. WILL HELP PT TO CHAIR SHORTLY.
--- NOTE | 2020-01-20 09:07 | TEE ---
PATIENT:LILIANE HOWARD MEDICAL RECORD: [id number] LOCATION:[place] [address] AGE OF PATIENT: 54 ADMISSION DATE: 01/18/20 SEX: F REFERRING PHYSICIAN: INTERPRETING PHYSICIAN: NAVEED HICKS MD TRANSESOPHAGEAL ECHOCARDIOGRAM Date: 01/18/20 NICOLLE CHARGE Y INDICATIONS: AVR/POSSIBLE MVR/REPAIR PREMEDICATIONS: PATIENT'S RESPONSE PROCEDURE DOPPLER MEASUREMENTS: LVIT LA 4.8 PA RA LVOT RVOT Asc. Ao AV Gradient Peak AV Mean AV Area MV Gradient Peak MV Mean MV Area INTERPRETATION: Doppler: 2-D: BISCUPID AOV WITH AORITC STENOSIS COLOR FLOW DOPPLER NORMAL SALINE STUDY: MISCELLANOUS: DIAGNOSIS: PLAN: Sieve Maker:3 Dr. Boone Nail Technician Teacher: Solo EMERSON COMMENTS: JUAN LUIS PATIENT DATE OF SERVICE: 01/19/2020 Transesophageal Note Preprocedure shows LVH. LV internal dimension is dilated. LV is globally hypokinetic with reduced EF, estimated at 40%. The aortic valve is bicuspid with obvious restriction and calcification, restriction of leaflet motion, consistent with known severe . Left atrium appears mildly dilated. Mitral valve appears normal with probably moderate MR. Right-sided chambers appear TRANSESOPHAGEAL ECHOCARDIOGRAM REPORT [id number] MARIA E HOWARD grossly normal. Postoperatively, LVH is still present. LV wall motion appears slightly improved at 45%-50%. Prosthetic aortic valve is noted. Tissue type in good position with no significant AI. Left atrium appears normal. Mitral valve again shows good valve excursion with mild MR. Right-sided chamber is grossly normal. Mild TR. TRANSINT:[id number] Voice Confirmation ID: [id number] DOCUMENT ID: [id number] at [id number] CC: [id number] DICTATION DATE: 01/19/20 1538 DISTRIBUTION ENGINEER: 01/20/20 0103 ADM IN [place] [id number] [place] [address]
--- NOTE | 2020-01-20 12:11 | NUR ---
RECEIVED REPORT AND ASSUMED CARE OF PATIENT. PATIENT SITTING UP IN BEDSIDE CHAIR, EATING LUNCH. NO NEEDS AT THIS TIME. VSS.
--- NOTE | 2020-01-20 15:00 | NUR ---
REASSESSMENT COMPLETED. VSS.
--- NOTE | 2020-01-20 16:27 | NUR ---
PATIENT ASSISTED UP TO BEDSIDE COMMMODE. VSS.
--- NOTE | 2020-01-20 16:45 | NUR ---
PATIENT PASSES GAS, NO BM, ASSISTED TO BEDSIDE CHAIR AND GIVEN DINNER TRAY. VSS.
--- NOTE | 2020-01-20 23:00 | NUR ---
REASSESSMENT COMPLETE PER FLOW SHEET, NO ACUTE CHANGES FROM PRIOR ASSESSMENT, PT AAOx4, DENIES PAIN OR NEEDS AT THIS TIME, REPOSITIONED IN BED FOR COMFORT, I/S COMPLETED, VSS, CALL LIGHT IN REACH, BED ALARM ON, WILL CONTINUE TO MONITOR
[2020-01-21] VITALS (25 sets, daily range): BP systolic 85–109; BP diastolic 49–69
[2020-01-21 06:05] LABS: HEMOGLOBIN 8.4 g/dL (12-16); MCH 24.9 pg (26.0-34.0); MCHC 31.1 g/dL (31.0-37.0); MCV 79.9 fL (80.0-100.0); MEAN PLATELET VOLUME 10.9 fL (7.4-10.4); RBC 3.38 10x6/uL (4.00-5.40); RDW 16.8 % (11.5-14.5); WBC 13.7 10x3/uL (4.8-10.8)
[2020-01-21 06:19] LABS: ALBUMIN 2.2 g/dL (3.4-5.0); ANION GAP 12.5 mmol/L (8-16); BILIRUBIN - TOTAL 0.68 mg/dL (0.2-1.3); CALCIUM 8.4 mg/dL (8.5-10.1); CARBON DIOXIDE 23.4 mmol/L (21.0-32.0); CREATININE - SERUM 1.4 mg/dL (0.6-1.3); POTASSIUM - SERUM 4.9 mmol/L (3.5-5.1); PROTEIN - SERUM 5.5 g/dL (6.4-8.2)
--- NOTE | 2020-01-21 07:00 | NUR ---
RECEIVED BEDSIDE REPORT ON PATIENT AND ASSUMED CARE, VSS. PATIENT ALERT AND ORIENTED X 4, SITTING UP IN BEDSIDE CHAIR. CVL RIGHT IJ WITH NS AT 15 ML/HR INFUSING. DRESSING C/D/I. RAMSEY CATH WITH CONCENTRATED UOP WITH BLOOD NOTED. CT TO WATER SEAL, NO AIR LEAK DETECTED. SPO2 - 99% ON 2 LPM VIA NC, BBS CLEAR AND EQUAL, DIMINIHSED IN THE BASES. MIDSTERANAL AND SUBSTERNAL DRESSING C/D/I. CM - SR RATE OF 78 WITH NO ECTOPY NOTED. HEAD TO TOE ASSESSMENT COMLETED.
--- NOTE | 2020-01-21 07:51 | NUR ---
PATIENT GIVEN BREAKFAST TRAY. NO NEEDS AT THIS TIME. VSS.
--- NOTE | 2020-01-21 08:45 | NUR ---
SPO2 - 99-100% ON 2 LPM 02 VIA NC, 02 REMOVED AND SPO2 - 93-94% ON RA.
--- NOTE | 2020-01-21 10:40 | NUR ---
PATIENT ASSISTED BACK TO BED, MORPHINE 2 MG IVP WITH NS FLUSH PER ORDER, DR. MCKNIGHT, AT ROOM PULLS CHEST TUBES, IODINE OINTMENT APPLIED AND DRESSED WITH 4X4 AND TEGADERM. TPM WIRES REMAIN IN PLACE. VSS.
--- NOTE | 2020-01-21 11:07 | NUR ---
PATIENT REASSESSMENT COMPLETED. PATIENT RESTING HENRY.
--- NOTE | 2020-01-21 12:11 | NUR ---
PATIENT RESTING QUIETLY, EASILY AROUSED BY VOICE, STATES NOT HUNGRY AT THIS TIME. LUNCH TRAY LEFT AT BEDSIDE.
--- NOTE | 2020-01-21 12:18 | NUR ---
Nutrition Follow-up: POD 3 aortic valve replacement. Eating well; ~90% this AM. Diet: Regular PO intake: 85-90% Wt: 303# (01/20); 295.4# (01/18) Last BM: 01/16 per chart Labs noted: Na 128, Glu 125, A1C 5.6, Ca 8.4, Alb 2.2 Meds noted: Humulin, Protonix, Senokot, Colace -Encourage PO intake and honor food preferences. -Monitor wt. -RD following.
--- NOTE | 2020-01-21 12:34 | NUR ---
PATIENT ASSISTED UP TO BEDSIDE CHAIR AND LUNCH TRAY SET UP. VSS.
--- NOTE | 2020-01-21 14:58 | NUR ---
REASSESSMENT COMPLETED. VSS.
--- NOTE | 2020-01-21 19:40 | NUR ---
REPORT REC'D AND CARE ASSUMED, PT REC'D ON ROOM AIR RESTING IN BED EYES CLOSED, AWAKENS EASILY, ORIENTED X 4, RIJ CVL SALINE LOCKED, DRSG CDI, MIDSTERNAL DRSG CDI, SUBSTERNAL DRSG TO PREVIOUS CT INSERTION SITES CDI, ABDOMEN SOFT, CRITICORE RAMSEY PATENT DRAINING JOSE M COLORED URINE, BILAT TEDS AND SCDS TO LOWER EXT'S, PPP, BED IN LOW POSITION, CALL LIGHT IN REACH, PT DENIES FURTHER NEEDS.
--- NOTE | 2020-01-21 21:08 | NUR ---
ROUTINE EVENING MEDS GIVEN, PT REQUESTING PAIN MEDICATION FOR HIP AND INCISIONAL DISCOMFORT, ASSISTED PT TO REPOSITION, WILL MONITOR FOR CHANGES.
--- NOTE | 2020-01-21 21:44 | NUR ---
PT COMPLAINS OF NAUSEA, COLD CLOTH PROVIDED AND ZOFRAN 4MG GIVEN SLOW IVP, VSS, WILL CONT TO MONITOR.
--- NOTE | 2020-01-21 22:30 | NUR ---
PT DOZING AT INTERVALS, REPORTS NAUSEA STILL REMAINS BUT MUCH IMPROVED, DENIES FURTHER NEEDS, BED IN LOW POSITION, CALL LIGHT IN REACH.
[2020-01-22] VITALS (23 sets, daily range): BP systolic 70–111; BP diastolic 42–70
--- NOTE | 2020-01-22 01:00 | NUR ---
PT RESTING EYES CLOSED, RESP EVEN AND UNLABORED, VSS, WILL CONT TO MONITOR FOR CHANGES.
--- NOTE | 2020-01-22 03:20 | NUR ---
RADIOLOGY AT BS FOR AM CXR
--- NOTE | 2020-01-22 05:20 | NUR ---
AM LAB DRAWN FROM CVL, PT COMPLAINS OF NAUSEA, ZOFRAN 4MG GIVEN SLOW IVP, VSS.
[2020-01-22 06:08] LABS: HEMATOCRIT 29.6 % (36.0-48.0); HEMOGLOBIN 8.9 g/dL (12-16); MCH 24.7 pg (26.0-34.0); MCHC 30.1 g/dL (31.0-37.0); RBC 3.61 10x6/uL (4.00-5.40); RDW 16.9 % (11.5-14.5)
[2020-01-22 06:13] LABS: WBC 19.2 10x3/uL (4.8-10.8)
[2020-01-22 06:49] LABS: ALBUMIN 2.3 g/dL (3.4-5.0); BILIRUBIN - TOTAL 1.62 mg/dL (0.2-1.3); CALCIUM 7.9 mg/dL (8.5-10.1); CARBON DIOXIDE 22.2 mmol/L (21.0-32.0); PROTEIN - SERUM 5.6 g/dL (6.4-8.2)
[2020-01-22 06:50] LABS: CREATININE - SERUM 2.1 mg/dL (0.6-1.3)
[2020-01-22 06:51] LABS: ANION GAP 14.1 mmol/L (8-16); POTASSIUM - SERUM 6.3 mmol/L (3.5-5.1)
[2020-01-22 08:01] LABS: ANION GAP 13.5 mmol/L (8-16); CALCIUM 7.8 mg/dL (8.5-10.1); CARBON DIOXIDE 21.2 mmol/L (21.0-32.0); POTASSIUM - SERUM 5.7 mmol/L (3.5-5.1)
--- NOTE | 2020-01-22 11:11 | NUR ---
O2 SAT 85 WHILE ASLEEP. PLACED ON OXYGEN @ 1 LPM. O2 SAT UP TO 96
--- NOTE | 2020-01-22 19:15 | NUR ---
REPORT REC'D AND CARE ASSUMED, REC'D PT RESTING IN BED, AWAKE, ALERT, AND ORIENTED X 4 ON ROOM AIR, RIJ CVL SALINE LOCKED, DRSG CDI, MIDSTERNAL DRSG CDI, SUBSTERNAL DRSG CDI, CRITICORE RAMSEY PATENT WITH JOSE M COLORED URINE PRESENT, BILAT TEDS AND SCDS INTACT, PPP, PT ASSISTED TO REPOSITION FOR COMFORT AND EXCESS BLANKETS REMOVED FROM BED UPON REQUEST, SR UP X 2, BED IN LOW POSITION, CALL LIGHT IN REACH.
--- NOTE | 2020-01-22 21:10 | NUR ---
EVENING MEDS GIVEN ORDERED, FSBS 106, NO OTHER NEEDS VOICED.
--- NOTE | 2020-01-22 23:00 | NUR ---
REASSESSMENT COMPLETED, PT RESTING IN BED EYES CLOSED, RESP EVEN AND UNLABORED, REMAINS ON ROOM AIR, O2 SAT 91% AT THIS TIME.
[2020-01-23] VITALS (24 sets, daily range): BP systolic 87–129; BP diastolic 47–88
--- NOTE | 2020-01-23 01:00 | NUR ---
PT IN CONTROLLED AFIB AT A RATE OF 73-78, BP 97/59, WILL NOTIFY MD IN THE MORNING UNLESS RHYTHM CHANGES TO UNCONTROLLED.
--- NOTE | 2020-01-23 03:40 | NUR ---
REASSESSMENT COMPLETED, PT COMPLAINS OF SLIGHT CHEST DISCOMFORT, RATING "3-4" ON O-10 PAIN SCALE, PERCOCET 5 GIVEN AT THIS TIME, PT REPOSITIONED IN BED FOR COMFORT, PT DENIES FURTHER NEEDS.
--- NOTE | 2020-01-23 06:15 | NUR ---
AM LAB DRAWN FROM CV AND SENT TO LAB, PT ASSISTED UP TO BSC, CALL LIGHT IN REACH.
[2020-01-23 06:47] LABS: HEMATOCRIT 28.5 % (36.0-48.0); HEMOGLOBIN 8.6 g/dL (12-16); MCH 24.6 pg (26.0-34.0); MCHC 30.2 g/dL (31.0-37.0); MCV 81.4 fL (80.0-100.0); MEAN PLATELET VOLUME 10.9 fL (7.4-10.4); RBC 3.5 10x6/uL (4.00-5.40); RDW 17.1 % (11.5-14.5)
[2020-01-23 06:48] LABS: WBC 12.1 10x3/uL (4.8-10.8)
[2020-01-23 07:05] LABS: ALBUMIN 2.3 g/dL (3.4-5.0); ANION GAP 13.1 mmol/L (8-16); BILIRUBIN - TOTAL 1.25 mg/dL (0.2-1.3); CALCIUM 7.5 mg/dL (8.5-10.1); CARBON DIOXIDE 23.4 mmol/L (21.0-32.0); CREATININE - SERUM 2.3 mg/dL (0.6-1.3); POTASSIUM - SERUM 5.5 mmol/L (3.5-5.1); PROTEIN - SERUM 5.3 g/dL (6.4-8.2)
--- NOTE | 2020-01-23 19:10 | NUR ---
PT RECEIVED WITH EYES OPEN WATCHING TV. VS STABLE. NO NEEDS OR CONCERNS NOTED AT THIS TIME. CALL LIGHT IN REACH. WILL CONTINUE TO OBSERVE.
--- NOTE | 2020-01-23 22:05 | NUR ---
PT RESTING WITH EYES CLOSED AND CHEST RISING. NO S/S OF DISTRESS. CALL LIGHT IN REACH. WILL CONTINUE TO OBSERVE.
--- NOTE | 2020-01-23 23:33 | NUR ---
PT RESTING WITH EYES CLOSED AND CHEST RISING. NO S/S OF DISTRESS. CALL LIGHT IN REACH. WILL CONTINUE TO OBSERVE.
[2020-01-24] VITALS (21 sets, daily range): BP systolic 90–126; BP diastolic 51–89
--- NOTE | 2020-01-24 01:02 | NUR ---
PT RESTING WITH EYES CLOSED AND CHEST RISING. NO S/S OF DISTRESS. CALL LIGHT IN REACH. WILL CONTINUE TO OBSERVE.
[2020-01-24 06:40] LABS: CALCIUM 7.7 mg/dL (8.5-10.1); CARBON DIOXIDE 24.8 mmol/L (21.0-32.0); POTASSIUM - SERUM 4.8 mmol/L (3.5-5.1)
[2020-01-24 06:41] LABS: CREATININE - SERUM 1.7 mg/dL (0.6-1.3)
--- NOTE | 2020-01-24 06:42 | NUR ---
PT UP TO BEDSIDE CHAIR, WITH STANDY ASSIST. TOLERATED WELL. CALL LIGHT IN REACH. WILL CONTINUE TO OBSERVE.
[2020-01-24 06:43] LABS: HEMATOCRIT 29.9 % (36.0-48.0); HEMOGLOBIN 9.1 g/dL (12-16); MCH 24.9 pg (26.0-34.0); MCHC 30.4 g/dL (31.0-37.0); MCV 81.9 fL (80.0-100.0); MEAN PLATELET VOLUME 10.9 fL (7.4-10.4); RBC 3.65 10x6/uL (4.00-5.40); RDW 17.5 % (11.5-14.5); WBC 13.7 10x3/uL (4.8-10.8)
[2020-01-24 06:44] LABS: PLATELET COUNT 177 10x3/uL (130-400)
[2020-01-24 07:17] LABS: LYMPHOCYTES 13 % (15-50); MONOCYTES 8 % (2-11); NEUTROPHILS 79 % (40-80); PLATELET ESTIMATE NORMAL
--- NOTE | 2020-01-24 07:58 | NUR ---
Nutrition follow-up: Pt POD #6 Diet: Regular with po intake ~50% average of last 6 meals Labs reviewed Wt: 302# RDN following.
--- NOTE | 2020-01-24 14:01 | NUR ---
Rehab Note- Acute Inpatient Rehab prescreen order received. The patient has insurance and will require a PReAuth, voicemail left for MARTHA Ambrocio to get an OT Eval ordered for PreAuth process. Will follow at this time. THank you for this referral! Sayra Nelson RN Clinical Liaison, [facility] Rehab
--- NOTE | 2020-01-24 20:00 | NUR ---
PT RECEIVED WITH EYES OPEN TALKING ON PHONE. NO NEEDS MADE KNOWN. CALL LIGHT IN REACH. WILL CONTINUE TO OBSERVE.
--- NOTE | 2020-01-24 21:20 | NUR ---
PT RESTING WITH EYES CLOSED AND CHEST RISING. NO S/S OF DISTRESS. CALL LIGHT IN REACH. WILL CONTINUE TO OBSERVE.
--- NOTE | 2020-01-24 23:36 | NUR ---
PT UP TO BEDSIDE COMMODE WITH MINIMAL ASSIST. 275ML DARK JOSE M URINE NOTED. PT BACK IN BED AND COMPLAINS OF PAIN WITH PRN PAIN MEDICATION GIVEN PER MAR. CALL LIGHT IN REACH. WILL CONTINUE TO OBSERVE.
[2020-01-25] VITALS (21 sets, daily range): BP systolic 85–105; BP diastolic 46–84
--- NOTE | 2020-01-25 01:29 | NUR ---
PT RESTING WITH EYES CLOSED AND CHEST RISING. NO S/S OF DISTRESS. CALL LIGHT IN REACH. WILL CONTINUE TO OBSERVE.
--- NOTE | 2020-01-25 02:56 | NUR ---
PT RESTING WITH EYES CLOSED AND CHEST RISING. NO S/S OF DISTRESS NOTED. CALL LIGHT IN REACH. WILL CONTINUE TO OBSERVE.
[2020-01-25 06:16] LABS: ALBUMIN 2.1 g/dL (3.4-5.0); ANION GAP 10.2 mmol/L (8-16); BILIRUBIN - TOTAL 1.03 mg/dL (0.2-1.3); CALCIUM 7.6 mg/dL (8.5-10.1); CARBON DIOXIDE 26.6 mmol/L (21.0-32.0); POTASSIUM - SERUM 4.8 mmol/L (3.5-5.1); PROTEIN - SERUM 5.2 g/dL (6.4-8.2)
[2020-01-25 06:17] LABS: CREATININE - SERUM 1.1 mg/dL (0.6-1.3)
--- NOTE | 2020-01-25 06:20 | NUR ---
PT UP TO CHAIR AFTER USING BEDSIDE COMMODE. TOLERATED TRANSFERS WELL. NO COMPLAINTS OF PAIN AT THIS TIME. CALL LIGHT IN REACH. WILL CONTINUE TO OBSERVE.
[2020-01-25 14:07] LABS: MAGNESIUM - SERUM 2.1 mg/dL (1.8-2.4); POTASSIUM - SERUM 4.4 mmol/L (3.5-5.1)
--- NOTE | 2020-01-25 16:23 | NUR ---
OT NOTE: PT SITTING UP IN CHAIR. PT COMPLETED SIT TO STAND WITH MIN/CGA. PT COMPLETED ADL MOB WITH RW WITH CGA. PT EXHIBITED INCREASED ACTIVITY TOLERANCE THIS PM. PT COMPLETED UE AROM WITH WALKER MANAGEMENT. [phone] THANK YOU,VESTA PARRISH
--- NOTE | 2020-01-25 19:00 | NUR ---
SHIFT ASSESSMENT COMPLETED. PT CARE ASSUMED, MONITORS ON AND WORKING, VITALS STABLE, PT AWAKE AND ALERT, NO SIGNS/SYMPTOMS OF PAIN OR DISCOMFORT NOTED. CALL LIGHT WITHIN REACH, SEE FLOW SHEET FOR FURTHER DETAILS, WILL CONTINUE TO OBSERVE.
--- NOTE | 2020-01-25 23:00 | NUR ---
PT LYING IN BED RESTING. MONITORS ON AND WORKING, VITALS STABLE, NO CHANGES AT THIS TIME, CALL LIGHT WITHIN REACH, WILL CONTINUE TO OBSERVE. SEE FLOW SHEET FOR FURTHER DETAILS. WILL CONTINUE TO OBSERVE.
[2020-01-26] VITALS (25 sets, daily range): BP systolic 82–124; BP diastolic 53–752
--- NOTE | 2020-01-26 03:00 | NUR ---
PT REPOSITIONED FOR COMFORT Q2 AND PRN. PT AWAKE AND ALERT, MONITORS ON AND WORKING, VITALS STABLE, SEE FLOW SHEET FOR FURTHER DETAILS, WILL CONTINUE TO OBSERVE.
--- NOTE | 2020-01-26 05:00 | NUR ---
CHG BED BATH GIVEN, DRESSINGS CHANGED. LINENS CHANGED. PT UP IN CHAIR, PT TOLERATED WELL. MONITORS ON AND WORKING, VITALS STABLE. CALL LIGHT WITHIN REACH, WILL CONTINUE TO OBSERVE.
[2020-01-26 06:20] LABS: HEMATOCRIT 30.6 % (36.0-48.0); HEMOGLOBIN 8.9 g/dL (12-16); MCH 24.3 pg (26.0-34.0); MCHC 29.1 g/dL (31.0-37.0); MCV 83.4 fL (80.0-100.0); MEAN PLATELET VOLUME 10.3 fL (7.4-10.4); RBC 3.67 10x6/uL (4.00-5.40); RDW 18.9 % (11.5-14.5); WBC 15.5 10x3/uL (4.8-10.8)
[2020-01-26 06:25] LABS: ALBUMIN 2.2 g/dL (3.4-5.0); ANION GAP 11.2 mmol/L (8-16); BILIRUBIN - TOTAL 1.06 mg/dL (0.2-1.3); CALCIUM 7.7 mg/dL (8.5-10.1); CARBON DIOXIDE 24.3 mmol/L (21.0-32.0); POTASSIUM - SERUM 4.5 mmol/L (3.5-5.1); PROTEIN - SERUM 5.5 g/dL (6.4-8.2)
[2020-01-26 06:35] LABS: PLATELET COUNT 227 10x3/uL (130-400)
[2020-01-26 07:49] LABS: EOSINOPHILS 1 % (0-7); LYMPHOCYTES 6 % (15-50); MONOCYTES 7 % (2-11); NEUTROPHILS 83 % (40-80); PLATELET ESTIMATE NORMAL
--- NOTE | 2020-01-26 09:25 | NUR ---
AMBULATING WITH PT AT THIS TIME.
--- NOTE | 2020-01-26 09:52 | NUR ---
Nutrition Follow-up: POD 8 aortic valve replacement. Pt reports appetite is not very good; ate ~50% of breakfast this AM. Denies N/V. Agreed to try Ensure. Diet: Regular Wt: 302# (01/22) Last BM: 01/19 per pt Labs noted: Na 130, Glu 134, Ca 7.7, elev LFTs Meds noted: Humulin, Protonix, Senokot, Colace -Will send Ensure with lunch today for pt trial 11/21 decreased appetite. -Monitor wt. -RD following.
--- NOTE | 2020-01-26 10:08 | NUR ---
CONTINUES UP IN CHAIR. DENIES HAVING PAIN AT THIS TIME. WILL CONTINUE TO MONITOR.
--- NOTE | 2020-01-26 11:00 | NUR ---
REASSESSMENT COMPLETED. NO ACUTE CHANGES FROM PREVIOUS ASSESSMENT. RESTING COMFORTABLY IN CHAIR. DENIES ANY PAIN AT THIS TIME. WILL CONTINUE TO MONITOR.
--- NOTE | 2020-01-26 11:14 | NUR ---
OT NOTE: PT PERFORMED WELL TODAY. REPORTS THAT SHE HAS BEEN GOING TO BATHROOM THIS AM.. ABLE TO WASH HANDS AND FACE WITH SET UP; GROOMING WITH SET UP. ABLE TO AMB WITH MIN/CGA AND NO AD.. REQUIRED 3 REST BREAKS WHILE AMB APPROX 85 FT. PTS L HAND REMAINS EDEMATOUS..PERFORMED RETROGRADE MASSAGE AND ELEVATED L HAND. RECOMMEND REHAB TO IMPROVE STRENGTH AND ADL INDEP. RADHA DARBY, OTR/L [phone]
--- NOTE | 2020-01-26 13:53 | NUR ---
RATES PAIN 8/10 AT INCISION SITE. PERCOCET 5MG TAB GIVEN PER ORDERS. NO FURTHER NEEDS AT THIS TIME WILL CONTINUE TO MONITOR.
--- NOTE | 2020-01-26 15:00 | NUR ---
RE-ASSESSMENT COMPLETED. RESTING COMFORTABLY. NO ACUTE CHANGES. NO FEVER NOTED. WILL CONTINUE TO MONITOR.
--- NOTE | 2020-01-26 19:00 | NUR ---
SHIFT ASSESSMENT COMPLETED. PT CARE ASSUMED, MONITORS ON AND WORKING, VITALS STABLE. PT UP TO BEDSIDE COMMODE WITH MINIMAL ASSIST, PT ASSISTED BACK INTO BED, PT TOLERATED WELL. PT AWAKE AND ALERT, REQUESTING PAIN MED AT THIS TIME, PAIN MEDS GIVEN PER ORDERS. CALL LIGHT WITHIN REACH, WILL CONTINUE TO OBSERVE.
[2020-01-27] VITALS (24 sets, daily range): BP systolic 84–130; BP diastolic 39–89
[2020-01-27 06:50] LABS: BASOPHILS 0.2 % (0-2); EOSINOPHILS 1.1 % (0-7); HEMATOCRIT 29.6 % (36.0-48.0); HEMOGLOBIN 8.5 g/dL (12-16); IMMATURE GRANULOCYTES 1.3 % (0-5); LYMPHOCYTES 16.5 % (15-50); MCHC 28.7 g/dL (31.0-37.0); MCV 83.6 fL (80.0-100.0); MEAN PLATELET VOLUME 9.8 fL (7.4-10.4); NEUTROPHILS 68.9 % (40-80); RBC 3.54 10x6/uL (4.00-5.40); RDW 19.2 % (11.5-14.5)
[2020-01-27 06:54] LABS: PLATELET COUNT 171 10x3/uL (130-400); WBC 11.5 10x3/uL (4.8-10.8)
[2020-01-27 07:05] LABS: CALCIUM 7.7 mg/dL (8.5-10.1); CARBON DIOXIDE 25.2 mmol/L (21.0-32.0); POTASSIUM - SERUM 4.2 mmol/L (3.5-5.1)
--- NOTE | 2020-01-27 07:30 | NUR ---
SHIFT REPORT RECEIVED. UP IN CHAIR. ON ROOM AIR. DENIES HAVING PAIN AT THIS TIME. MIDSTERNAL AND SUBSTERNAL DRESSING IN PLACE. BARB PICC SALINE LOC. TEDS ON BLE. NO SCD'S AT THIS TIME. SWELLING ON LE +3 PITTING. ENCOURAGED PT TO KEEP LEGS ELEVATED TO REDUCE SWELLING. NO FEVER NOTED. CONTINUES CONTROLLED A-FIB IN 80S-90S. CALL LIGHT IN REACH. WILL CONTINUE TO MONITOR.
--- NOTE | 2020-01-27 09:20 | NUR ---
ASSISTED UP TO BEDSIDE COMMODE. 200ML JOSE M URINE NOTED. NO STOOL AT THIS TIME. BATH OFFERRED AT THIS TIME. PT REFUSED. WANTS TO WAIT FOR DAUGHTER TO HELP.
--- NOTE | 2020-01-27 10:50 | NUR ---
UP TO BEDSIDE COMMODE. VOIDED 400ML OF CONCENTRATED URINE.
--- NOTE | 2020-01-27 11:53 | NUR ---
ASSISTED UP TO BEDSIDE COMMODE. VOIDED 300ML YELLOW URINE. MEAL TRAY AT BEDSIDE.
--- NOTE | 2020-01-27 13:06 | NUR ---
OT NOTE: PT DOING BETTER. AMB IN ROOM WITHOUT ASSISTIVE DEVICE; TOILETING WITH SPV/MOD I; TOLERATING STAYING IN CHAIR THROUGHOUT THE DAY. EDEMA IN L HAND MUCH IMPROVED. EDUCATED ON UE/LE EXS WHILE IN CHAIR; AMB GREATER THAN 150 FT WITH GAIT BELT AND MIN ASSIST AND NO AD. PT WANTING TO GO HOME WITH . RADHA DARBY,OTR/L [phone]
--- NOTE | 2020-01-27 14:27 | MORECARE ---
CASE MANAGEMENT DISCHARGE SUMMARY PATIENT: LILIANE HOWARD UNIT: [id number] ADM DATE: 01/18/20 AGE: 54 : 61 SEX: F ROOM/BED: [facility] AUTHOR: IRVIN,DOC PHYSICIAN: REFERRING PHYSICIAN: SHUN MCKNIGHT MD DATE OF SERVICE: 01/27/20 Discharge Plan Patient Name: LILIANE HOWARD Facility: [facility]:[place] : 1965 Planned Disposition: Home Anticipated Discharge Date: Discharge Date: Expected LOS: Initial Reviewer: [email or web address] Initial Review Date: 01/18/2020 Generated: 01/27/20 3:27 pm Comments DCP- Discharge Planning Updated by [email or web address]: Lolly Hahn on 01/27/20 1:[address] CM SPOKE WITH [facility]. THEY ARE STILL AWAITING AUTH FROM INSURANCE. THEY WILL ACCEPT PATIENT SOON INSURANCE APPROVES. DCP- Discharge Planning Updated by [id number]: Yissel Mora on 01/19/20 9:[address] Patient Name: LILIANE HOWARD Admission Status: Elective Accout number: [id number] Admission Date: 01-18-2020 : 1965 Admission Diagnosis: Attending: SHUN MCKNIGHT Current LOS: 1 Anticipated DC Date: Planned Disposition: Home Primary Insurance: [facility] Discharge Planning Comments: CM met with patient to complete initial dc planning assessment. CM educated patient on the CM role and verbal consent given by patient to complete assessment. CM verified patient's address, phone number, and emergency contact phone numbers. Patient lives at home with spouse Myron [phone]. At discharge patient plans to return and feels this is a safe discharge. CM discussed availability of home health, rehab services, and medical equipment. ARLENE was signed for any IP rehab, HH, and DME providers who will service [place]. Patient claims to be independent prior to admission, and plans to return home independent. Patient denied known discharge needs at this time. Transportation provider at discharge will be her Myron. CM will continue to follow and will assist as needed with dc plans/needs. Freezer Person: Yissel Mora DCPIA - Discharge Planning Initial Assessment Updated by [id number]: Yissel Mora on 01/19/20 8:33 am * Is the patient Alert and Oriented? Yes * How many steps to enter\exit or inside your home? 0/0 * PCP DR LOUISE * Pharmacy [facility] IN [place] * Preadmission Environment Home with Family * ADLs Independent * Equipment Other * Other Equipment SHOWER SEAT. HAS RAMP FOR HOME ENTRY * List name and contact numbers for known caregivers / representatives who currently or will assist patient after discharge: MYRON ABEL [phone] WORK [phone] JOSE M BENEDICT DTR [phone] * Verbal permission to speak to the caregivers and representatives has been obtained from the patient. Yes * Community resources currently utilized None * Additional services required to return to the preadmission environment? Yes * Can the patient safely return to the preadmission environment? No * Has this patient been hospitalized within the prior 30 days at any hospital? No Coverage Notice Reviewer: [id number] Aurea Mora Notice Issued Date-Time: 01/19/2020 8:20 Notice Type: Patient Choice Letter Notice Delivered To: Patient Relationship to Patient: Clinical Research Physician Name: Delivery Method: HAND - Hand Delivered Yolanda Days: Prior Verbal Notification: Recipient Understood Notice: Yes Recipient Signature: Yes Med Rec Note Co-signed by Attending: Coverage Notice Comment: ARLENE SIGNED FOR ANY IP REHAB, HH, OR O2 DME Last DP export: 01/19/20 9:06 am Patient Name: LILIANE HOWARD Page [phone] at 1427 All edits/amendments must be made on the electronic document DICTATION DATE: 01/27/201426 BLISTER PACK OPERATOR: NOAH 01/27/20 142 RPT#: [id number] DC DATE: STATUS: ADM IN [facility] [address] [place] [address] END OF REPORT
--- NOTE | 2020-01-27 15:09 | NUR ---
OT NOTE: PT COMLETED ADLMOB TO BATHROOM WITH TANK SHOP SUPERVISOR. PT COMPLETED TOILETING WITH MIN A FOR CLOTHING MANAGEMENT. PT COMPLETED TOILET HYGIENE WITH SBA. PT COMPLETED HAND HYGIENE WITH SETUP. PT REQUIRED MIN A FOR SIT TO STAND FROM TOILET. [phone] THANK YOU,VESTA PARRISH
--- NOTE | 2020-01-27 18:33 | NUR ---
CHG BATH GIVEN. COMPLETE LINEN CHANGE PROVIDED. TEDS REMOVED DURING BATH. TOES STARTED TO TURN BLUE AND COOL TO TOUCH. PULSE PALPABLE. WRAPPED TOES WITH WARM BLANKET. TOES STARTED TO REGAIN RED COLOR. ASSISTED PT BACK TO BED. NO FURTHER NEEDS AT THIS TIME. WILL CONTINUE TO MONITOR.
--- NOTE | 2020-01-27 19:00 | NUR ---
Report received from off going nurse. Pt is sitting up in bed with eyes closed at this time. No needs voiced. Initial assessment completed, see flowsheet for details. No s/s of distress. Will continue to monitor.
--- NOTE | 2020-01-27 21:00 | NUR ---
Pt is sitting up in bed with eyes closed at this time. Needs denied. No s/s of distress. Will continue to monitor.
--- NOTE | 2020-01-27 23:00 | NUR ---
Reassessment completed, see flowsheet for details. Pt is sitting up in bed with eyes closed at this time. Needs denied. NO s/s of distress. Will continue to monitor.
[2020-01-28] VITALS (14 sets, daily range): BP systolic 86–131; BP diastolic 47–94
--- NOTE | 2020-01-28 01:00 | NUR ---
Pt is sitting up in bed with eyes closed. Needs denied at this time. No s/s of distress. Will continue to monitor.
--- NOTE | 2020-01-28 03:00 | NUR ---
Reassessment completed, see flowsheet for details. Pt is sitting up in bed with eyes closed. No needs noted at this time. No s/s of distress. Will continue to monitor.
--- NOTE | 2020-01-28 05:00 | NUR ---
Pt is sitting up in bed with eyes closed at this time. No needs noted. No s/s of distress. Will continue to monitor.
[2020-01-28 06:20] LABS: BASOPHILS 0.1 % (0-2); HEMOGLOBIN 8.4 g/dL (12-16); IMMATURE GRANULOCYTES 0.9 % (0-5); LYMPHOCYTES 14.4 % (15-50); MCH 24.3 pg (26.0-34.0); MCV 83.8 fL (80.0-100.0); MEAN PLATELET VOLUME 10.2 fL (7.4-10.4); MONOCYTES 10.2 % (2-11); NEUTROPHILS 73.4 % (40-80); PLATELET COUNT 138 10x3/uL (130-400); RBC 3.46 10x6/uL (4.00-5.40); RDW 19.6 % (11.5-14.5); WBC 9.2 10x3/uL (4.8-10.8)
[2020-01-28 06:37] LABS: ANION GAP 11.1 mmol/L (8-16); BILIRUBIN - TOTAL 0.83 mg/dL (0.2-1.3); CALCIUM 7.6 mg/dL (8.5-10.1); CARBON DIOXIDE 25.9 mmol/L (21.0-32.0); CREATININE - SERUM 0.9 mg/dL (0.6-1.3); PROTEIN - SERUM 5.4 g/dL (6.4-8.2)
--- NOTE | 2020-01-28 07:58 | NUR ---
PT OOB TO CHAIR. BREAKFAST TRAY SERVED, PT IS EATING BREAKFAST WITH OUT DIFFICULTY.
[2020-01-28] MEDS ORDERED: BETAPACE 80 MG80 MG PO (10:13)
[2020-01-28] MEDS ORDERED: COLACE100 MG PO (10:15)
[2020-01-28] MEDS ORDERED: PERCOCET 5-3251 TAB PO (10:17)
[2020-01-28] MEDS ORDERED: COZAAR25 MG PO (10:22)
--- NOTE | 2020-01-28 10:25 | NUR ---
Nutrition Follow-up: POD 10 aortic valve replacement. Fair PO intake. Ate >=50% of breakfast this AM. Diet: Regular PO intake: 50-60% Wt: 304# (01/27); 295.4# (01/18) Last BM: 01/25 per pt Labs noted: Na 134, Glu 108, Ca 7.6, Alb 2.0 Meds noted: Humulin, Protonix, Senokot, Colace -Encourage PO intake and honor food preferences. -Monitor wt. -RD following.
--- NOTE | 2020-01-28 10:55 | NUR ---
dr martinez here on rounds. pm wired dcd by dr martinez. pt dami bliss.
--- NOTE | 2020-01-28 12:45 | NUR ---
ASSISTED BACK UP TO CHAIR FOR LUNCH. PT CHIQUITA WELL.
--- NOTE | 2020-01-28 14:12 | NUR ---
46 CM POWER PICC REMOVED WITHOUT RESISTANCE WITH MINIMAL BLOOD LOSS. PT CHIQUITA WELL. INSTRUCTED TO LEAVE CLEAR OCCLUSIVE DRSG IN PLACE FOR 24 HOURS. PT REPEATED BACK TO ME, VOICING UNDERSTANDING.
--- NOTE | 2020-01-28 14:17 | NUR ---
PICC LINE DCD BY SQL DATABASE PROGRAMMER. REVIEWED DC INSTRUCTIONS. PT VERB UNDERSTANDING.
--- NOTE | 2020-01-31 08:20 | MORECARE ---
CASE MANAGEMENT DISCHARGE SUMMARY PATIENT: LILIANE HOWARD UNIT: [id number] ADM DATE: 01/18/20 AGE: 54 : 61 SEX: F ROOM/BED: [facility] AUTHOR: IRVIN,ARNULFO PHYSICIAN: REFERRING PHYSICIAN: SHUN MCKNIGHT MD DATE OF SERVICE: 01/31/20 Discharge Plan Patient Name: LILIANE HOWARD Facility: [facility]:[place] : 1965 Planned Disposition: Home Anticipated Discharge Date: Discharge Date: 01/28/2020 Expected LOS: Initial Reviewer: [email or web address] Initial Review Date: 01/18/2020 Generated: 01/31/20 9:19 am Comments DCP- Discharge Planning Updated by [email or web address]: Lolly Hahn on 01/27/20 1:[address] CM SPOKE WITH [facility]. THEY ARE STILL AWAITING AUTH FROM INSURANCE. THEY WILL ACCEPT PATIENT SOON INSURANCE APPROVES. DCP- Discharge Planning Updated by [id number]: Yissel Mora on 01/19/20 9:[address] Patient Name: LILIANE HOWARD Admission Status: Elective Accout number: [id number] Admission Date: 01-18-2020 : 1965 Admission Diagnosis: Attending: SHUN MCKNIGHT Current LOS: 1 Anticipated DC Date: Planned Disposition: Home Primary Insurance: [employer] Discharge Planning Comments: CM met with patient to complete initial dc planning assessment. CM educated patient on the CM role and verbal consent given by patient to complete assessment. CM verified patient's address, phone number, and emergency contact phone numbers. Patient lives at home with spouse Myron [phone]. At discharge patient plans to return and feels this is a safe discharge. CM discussed availability of home health, rehab services, and medical equipment. ARLENE was signed for any IP rehab, HH, and DME providers who will service [place]. Patient claims to be independent prior to admission, and plans to return home independent. Patient denied known discharge needs at this time. Transportation provider at discharge will be her Myron. CM will continue to follow and will assist as needed with dc plans/needs. Auto Wheel Alignment Specialist: Yissel Mora DCPIA - Discharge Planning Initial Assessment Updated by [email or web address]: Yissel Mora on 01/19/20 8:33 am * Is the patient Alert and Oriented? Yes * How many steps to enter\exit or inside your home? 0/0 * PCP DR LOUISE * Pharmacy [facility] IN [place] * Preadmission Environment Home with Family * ADLs Independent * Equipment Other * Other Equipment SHOWER SEAT. HAS RAMP FOR HOME ENTRY * List name and contact numbers for known caregivers / representatives who currently or will assist patient after discharge: MYRON [phone] WORK [phone] JOSE M BENEDICT DTR [phone] * Verbal permission to speak to the caregivers and representatives has been obtained from the patient. Yes * Community resources currently utilized None * Additional services required to return to the preadmission environment? Yes * Can the patient safely return to the preadmission environment? No * Has this patient been hospitalized within the prior 30 days at any hospital? No Coverage Notice Reviewer: [id number] - Yissel Mora Notice Issued Date-Time: 01/19/2020 8:20 Notice Type: Patient Choice Letter Notice Delivered To: Patient Relationship to Patient: Earth Science Faculty Member Name: Delivery Method: HAND - Hand Delivered Yolanda Days: Prior Verbal Notification: Recipient Understood Notice: Yes Recipient Signature: Yes Med Rec Note Co-signed by Attending: Coverage Notice Comment: ARLENE SIGNED FOR ANY IP REHAB, HH, OR O2 DME Last DP export: 01/27/20 1:27 pm Patient Name: LILIANE HOWARD Page [id number] at 0820 All edits/amendments must be made on the electronic document DICTATION DATE: 01/31/20818 SALES AND SERVICE SPECIALIST: NOAH 01/31/20818 RPT#: [id number] DC DATE:01/28/20 STATUS: DIS IN [facility] [address] [place] [address] END OF REPORT
== END 2020-01-28 15:00 | disposition home or self-care (01) | DRG 219 ==
LOC: D.EDHOLD 01-14 07:30 → D.SDCHOLD 01-18 05:08 → D.CVICU 01-18 05:08 → D.EDHOLD 01-18 07:30 → D.CVICU 01-18 09:07
PROVIDERS: ADMIT Thoracic Surgery (Cardiothoracic Vascular Surgery); ATTEND Thoracic Surgery (Cardiothoracic Vascular Surgery)
PROC: 02RF08Z Replacement of Aortic Valve with Zooplastic Tissue, Open Approach (ICD-10-PCS; principal; 2020-01-18 07:30)
PROC: 5A1221Z Performance of Cardiac Output, Continuous (ICD-10-PCS; 2020-01-18 07:30)
PROC: 05HD33Z Insertion of Infusion Device into Right Cephalic Vein, Percutaneous Approach (ICD-10-PCS; 2020-01-24)
PROC: B54MZZA Ultrasonography of Right Upper Extremity Veins, Guidance (ICD-10-PCS; 2020-01-24)
DX: I08.0 Rheumatic disorders of both mitral and aortic valves (principal); K72.00 Acute and subacute hepatic failure without coma; I42.0 Dilated cardiomyopathy; I48.92 Unspecified atrial flutter; R00.0 Tachycardia, unspecified; I48.91 Unspecified atrial fibrillation; I10 Essential (primary) hypertension; E78.5 Hyperlipidemia, unspecified; N19 Unspecified kidney failure

== ENCOUNTER 2020-01-13 11:51 | Outpatient (CLI) | payer OTHER ==
[~2020-01-13] VITALS: Ht 167.6 cm; Wt 122.7 kg
[~2020-01-13 11:51] MED LIST changes: +STOOL SOFTENER100 M1 PO
[2020-01-13 12:39] VITALS: Ht 167.6 cm; Wt 122.7 kg
[2020-01-14 11:08] LABS: BILIRUBIN NEGATIVE (NEGATIVE); GLUCOSE NEGATIVE (NEGATIVE); KETONE NEGATIVE (NEGATIVE); NITRITE NEGATIVE (NEGATIVE); RED CELLS - URINE 0-5 /hpf (0-5); SPECIFIC GRAVITY 1.015 (1.005-1.020); UROBILINOGEN NORMAL (NORMAL); WHITE CELLS - URINE OCC /hpf (NEGATIVE)
[2020-01-14 11:09] LABS: BACTERIA FEW /hpf (NEGATIVE)
== END 2020-01-13 12:50 | disposition home or self-care (01) ==
LOC: D.OPS 11:51
PROVIDERS: ATTEND Thoracic Surgery (Cardiothoracic Vascular Surgery)
DX: Z01.812 Encounter for preprocedural laboratory examination (principal)

== ENCOUNTER → 2020-02-03 11:39 | Outpatient (CLI) | payer OTHER ==
[2020-01-19 13:45] VITALS: BMI 47.7
[~2020-02-03 11:39] MED LIST changes: +BETAPACE 80 MG80 MG PO; +COLACE100 MG PO; +COZAAR25 MG PO; +PERCOCET 5-3251 TAB PO; +SMZ-TMP DS 800-1 TAB PO
[2020-02-03 12:44] LABS: ANION GAP 12.1 mmol/L (8-16); CARBON DIOXIDE 26.3 mmol/L (21.0-32.0); CREATININE - SERUM 0.9 mg/dL (0.6-1.3); POTASSIUM - SERUM 4.4 mmol/L (3.5-5.1)
[2020-02-03 12:48] LABS: BASOPHILS 0.1 % (0-2); EOSINOPHILS 0.8 % (0-7); HEMATOCRIT 31.8 % (36.0-48.0); HEMOGLOBIN 8.9 g/dL (12-16); IMMATURE GRANULOCYTES 0.3 % (0-5); LYMPHOCYTES 11.3 % (15-50); MCV 85.7 fL (80.0-100.0); MEAN PLATELET VOLUME 9.9 fL (7.4-10.4); MONOCYTES 11.3 % (2-11); NEUTROPHILS 76.2 % (40-80); RBC 3.71 10x6/uL (4.00-5.40); RDW 20.5 % (11.5-14.5); WBC 7.7 10x3/uL (4.8-10.8)
[2020-02-03 12:55] LABS: PLATELET COUNT 317 10x3/uL (130-400)
== END | disposition home or self-care (01) ==
LOC: D.RAD 11:39
PROVIDERS: ATTEND Thoracic Surgery (Cardiothoracic Vascular Surgery)
DX: I35.0 Nonrheumatic aortic (valve) stenosis (principal); I48.19 Other persistent atrial fibrillation

== ENCOUNTER 2020-02-16 11:15 | Inpatient (IN) | payer OTHER ==
[~2020-02-16] VITALS: Ht 167.6 cm; Wt 137.8 kg
[2020-02-16] VITALS (15 sets, daily range): BP systolic 96–143; BP diastolic 53–104; BMI 48.5
--- NOTE | ~2020-02-16 | EC ---
PATIENT:LILIANE HOWARD DATE OF SERVICE: 02/16/20 SEX: F MEDICAL RECORD: [id number] DATE OF : [birth year] LOCATION:[place] [address] AGE OF PATIENT: 55 ADMISSION DATE: 02/16/20 REFERRING PHYSICIAN: INTERPRETING PHYSICIAN: CARLEE CHILDERS MD ECHOCARDIOGRAM REPORT ECHO CHARGES 4 ECHO COMPLETE Date: 02/19/20 CLINICAL DIAGNOSIS: UNCONTROLLED AFIB/FLUID OVERLOAD RECENT AVR ECHOCARDIOGRAPHIC MEASUREMENTS (adult normal given) AC root (d.<3.7cm) 2.2 cm LV Septum d (<1.2 cm> 1.2 cm Valve Excursion 1.2 cm LV Septum (systole) 1.3 cm Left Atria (s.<4.0cm> 3.5 cm LVPW d(<1.2cm) 1.3 cm RV (d.<2.3cm) 4.3 cm LVPW (sytole) 1.5 cm LV diastole(<5.6CM) 6.7 cm MV E-F(>70mm/sec) cm LV systole 5.4 cm LVOT Diameter 1.5 cm MV exc.(>10mm) 1.7 cm Est.ejection fraction (50-75%) % DOPPLER: LVIT cm/sec A cm/sec E cm/sec LA cm/sec RVSP 20 mmHg LVOT 84 cm/sec AOP1/2T m/s Asc. Ao 212 cm/sec RVOT 74 cm/sec RA cm/sec PA 79 cm/sec AV Gradient Peak 17.99mmHg AV Mean 11.31mmHg AV Area 0.80 cm MV Gradient Peak mmHg MV Mean mmHg MV Area cm COMMENTS: Railroad Car Cleaner: 2 BRENDAN EMERSON Development Director: 4 Dr. Childers TAPE# PACS Pericardial Effusion N DATE OF SERVICE: 02/19/2020 PROCEDURE: Transthoracic echocardiogram. Left ventricle shows wall motion abnormalities with an ejection fraction of 25%. There is anterior apical hypokinesis and septal dyskinesis. Left atrium is normal size, shape, structure, and function. Inflow velocities were not adequate because it appears the patient may be in ECHOCARDIOGRAM REPORT [id number] LILIANE HOWARD flutter. Mitral valve has trace mitral regurgitation. Aortic valve has aortic valve replacement with normal velocities across the aortic valve replacement. Right ventricle is mildly dilated. The right atrium is mildly enlarged. Tricuspid valve appears to be grossly normal and the right ventricular systolic pressure is normal. Pulmonic valve is normal and there is no pericardial effusion. TRANSINT:[id number] Voice Confirmation ID: [id number] DOCUMENT ID: [id number] CARLEE CHILDERS MD CC: [id number] DICTATION DATE: 02/20/20 1153 SALT MACHINE OPERATOR: 02/20/20 1317 ADM IN [facility] [address] [place] [address]
--- NOTE | 2020-02-16 14:00 | NUR ---
RECIEVED PT TO CV01 DIRECT ADMIT FROM DR DAWKINS OFFICE. PT IS VERY SOB. REPORTS GAINING 40 LBS SINCE DC.LOWER EXTREMITIES AND VERY EDEMATOUS. REPORTS TAKING LAST DOSE OF LASIX FRIDAY.
[2020-02-16 14:11] LABS: BASOPHILS 0.2 % (0-2); EOSINOPHILS 0.2 % (0-7); HEMATOCRIT 34.2 % (36.0-48.0); HEMOGLOBIN 9.8 g/dL (12-16); IMMATURE GRANULOCYTES 0.2 % (0-5); LYMPHOCYTES 13.7 % (15-50); MCH 23.4 pg (26.0-34.0); MCHC 28.7 g/dL (31.0-37.0); MCV 81.8 fL (80.0-100.0); MEAN PLATELET VOLUME 11.5 fL (7.4-10.4); MONOCYTES 14.9 % (2-11); NEUTROPHILS 70.8 % (40-80); PLATELET COUNT 378 10x3/uL (130-400); RBC 4.18 10x6/uL (4.00-5.40); RDW 18.6 % (11.5-14.5); WBC 10.8 10x3/uL (4.8-10.8)
[2020-02-16 14:33] LABS: ANION GAP 14.2 mmol/L (8-16); CALCIUM 8.6 mg/dL (8.5-10.1); CARBON DIOXIDE 23.5 mmol/L (21.0-32.0); CREATININE - SERUM 0.9 mg/dL (0.6-1.3); POTASSIUM - SERUM 4.7 mmol/L (3.5-5.1)
--- NOTE | 2020-02-16 15:00 | NUR ---
PIV STARTED TO R AC UPON ARRIVAL. GIVEN AMIODARONE BOLUS AND LASIX PER ORDER. EKG OBTAINED WELL. AFIB WITH RVR. HR 165 RECIEVED AN ORDER TO GIVE CARDIZEN BOLUS THEN INITIATE CARDIZEM GTT AT 5MG/HR.
--- NOTE | 2020-02-16 19:30 | NUR ---
RAMSEY CATH PER STERILE TECHNIQUE. 125ML URINE RETURNED.
[2020-02-16] MEDS ORDERED: XARELTO20 MG PO (19:45)
[2020-02-17] VITALS (27 sets, daily range): BP systolic 88–129; BP diastolic 33–103; Ht 167.6 cm; Wt 137.8 kg
[2020-02-17 06:28] LABS: BASOPHILS 0.1 % (0-2); EOSINOPHILS 0.1 % (0-7); HEMATOCRIT 30.8 % (36.0-48.0); HEMOGLOBIN 8.7 g/dL (12-16); IMMATURE GRANULOCYTES 0.4 % (0-5); LYMPHOCYTES 12.5 % (15-50); MCH 23.6 pg (26.0-34.0); MCHC 28.2 g/dL (31.0-37.0); MCV 83.7 fL (80.0-100.0); MONOCYTES 15.8 % (2-11); NEUTROPHILS 71.1 % (40-80); PLATELET COUNT 318 10x3/uL (130-400); RBC 3.68 10x6/uL (4.00-5.40); RDW 18.7 % (11.5-14.5)
[2020-02-17 06:57] LABS: ANION GAP 10.8 mmol/L (8-16); CALCIUM 8.2 mg/dL (8.5-10.1); CARBON DIOXIDE 28.1 mmol/L (21.0-32.0); POTASSIUM - SERUM 4.9 mmol/L (3.5-5.1)
[2020-02-17 06:58] LABS: CREATININE - SERUM 1.2 mg/dL (0.6-1.3)
--- NOTE | 2020-02-17 07:52 | NUR ---
SHIFT ASSESSMENT COMPLETED. AA&OX4. ON 4L O2 VIA NC. MIDSTERNAL PREVIOUS INCISION HEALING WITH NO SIGNS OF INFECTION NOTED. RAMSEY CATHETER INPLACE WITH CONCENTRATED JOSE M URINE NOTED. DENIES PAIN AT THIS TIME. HR IN 70S NORMAL SINUS. CARDIZEM DRIP INFUSING THROUGH KOTA PICC. CALL LIGHT IN REACH. AWARE OF LIMITATIONS. WILL CONTINUE TO MONITOR.
--- NOTE | 2020-02-17 08:00 | NUR ---
JERAMIE WINTERS DC'D PER DR. MCKNIGHT'S ORDERS.
--- NOTE | 2020-02-17 09:09 | NUR ---
TRANSFERRED TO CHAIR WITH PHYSICAL THERAPY. TOLERATED WELL. MEAL TRAY SET UP. ORANGE JUICE PROVIDED PER PT REQUEST. NO FURTHER NEEDS AT THIS TIME. WILL CONTINUE TO MONITOR.
--- NOTE | 2020-02-17 10:40 | NUR ---
RESTING IN CHAIR. SOB NOTED ON EXERCITION. CALL LIGHT IN REACH. IDRSI LE ELEVATED WITH PILLOW. NO FURTHER NEEDS AT THIS TIME. WILL CONTINUE TO MONITOR.
--- NOTE | 2020-02-17 11:00 | NUR ---
RE-ASSESSMENT COMPLETED. HR IN 80S-90S CONTROLLED AFIB. SITTING UP IN CHAIR. SOB ON EXERTION NOTED. ORAL TEMP 98 DEGREES. DENIES PAIN AT THIS TIME. WILL CONTINUE TO MONITOR.
--- NOTE | 2020-02-17 13:30 | NUR ---
ASSITED BACK TO BED. PULLLED UP AND REPOSITIONED FOR COMFORT. CALL LIGHT IN REACH. NO FURTHER NEEDS.
--- NOTE | 2020-02-17 14:35 | NUR ---
PULLED UP AND REPOSTIONED FOR COMFORT. ICE WATER PROVIDED. NO FURTHER NEEDS.
--- NOTE | 2020-02-17 15:23 | NUR ---
PULLED UP IN BED AND REPOSITIONED FOR COMFORT.
--- NOTE | 2020-02-17 16:30 | NUR ---
PT RESTING IN BED. O2 SAT 98% WITH 2L O2 VIA NC. TAKEN OFF O2 AT THIS TIME PER PATIENT REQUEST. WILL CONTINUE TO MONITOR CLOSELY.
--- NOTE | 2020-02-17 17:04 | NUR ---
RESTING COMFORTABLY. 02 SAT 100% ON ROOM AIR. STATES SHE DOESN'T HAVE APPETITE AT THIS TIME.
--- NOTE | 2020-02-17 19:00 | NUR ---
REPORT RECEIVED AT BEDSIDE, SHIFT ASSESSMENT COMPLETED PER FLOW SHEET, PT AWAKE AND ALERT, ANSWERES ALL QUESTIONS APPROPRIATLY, AFIB @ RATE 110-120'S ON CM, DAY SHIFT RN STATED SHE NOTIFIED WITH NO NEW ORDERS RECEIVED, OTHER VSS, ON NC @ 4L/MIN, MIDSTERNAL INCISION SITE FROM PRIOR SURGERY C/D/I WELL APPROXIMATED, RAMSEY CATH TO GRAVITY WITH YELLOW URINE NOTED, ROSEMARY REECEE AND SCD'S ON BLE, ALL PULSES PALPABLE, I/S COMPLETED [id number], TCDB DONE, REPOSITIONED PT FOR COMFORT, CALL LIGHT IN REACH, FALL PREVENTION TEACHING COMPLETED, BED ALARM ON, WILL CONTINUE TO MONITOR
[2020-02-18] VITALS (65 sets, daily range): BP systolic 70–133; BP diastolic 30–92
--- NOTE | 2020-02-18 00:30 | NUR ---
PT INCONTINENT OF BOWEL, SEMIFORMED MCLAIN BROWN BM NOTED WHEN REPOSITIONING PT IN BED, COMPLETE CHG BATH AND LINEN CHANGE COMPLETED, YELLOW GOWN PLACED ON PT, REPOSITIONED IN BED FOR COMFORT, HOB ELEVATED, PT HAD PERIODS OF SOB ON EXERTION THAT RESOLVED WITH REST, ROSEMARY HOSE AND SCR'S REPLACED, CALL LIGHT IN REACH, LARGE CUP ICE WATER GIVEN PER REQUEST, WILL CONTINUE TO MONITOR
[2020-02-18 06:16] LABS: BASOPHILS 0.1 % (0-2); EOSINOPHILS 0.3 % (0-7); HEMATOCRIT 32.3 % (36.0-48.0); IMMATURE GRANULOCYTES 0.2 % (0-5); LYMPHOCYTES 11.8 % (15-50); MCH 23.6 pg (26.0-34.0); MCHC 27.9 g/dL (31.0-37.0); MCV 84.8 fL (80.0-100.0); MEAN PLATELET VOLUME 10.3 fL (7.4-10.4); MONOCYTES 17.9 % (2-11); NEUTROPHILS 69.7 % (40-80); PLATELET COUNT 353 10x3/uL (130-400); RBC 3.81 10x6/uL (4.00-5.40); RDW 18.5 % (11.5-14.5)
[2020-02-18 07:03] LABS: ANION GAP 10.7 mmol/L (8-16); CARBON DIOXIDE 28.8 mmol/L (21.0-32.0); POTASSIUM - SERUM 5.5 mmol/L (3.5-5.1)
[2020-02-18 07:05] LABS: CREATININE - SERUM 1.6 mg/dL (0.6-1.3)
--- NOTE | 2020-02-18 10:08 | NUR ---
Nutrition Follow-up: Continues to report decreased appetite. Ate a small portion of breakfast. Reports large loose BM this AM. Diet: Cardiac PO intake: 10-40% Wt: 298.7# (02/17); 298.7# (02/16) Labs noted: Na 133, K+ 5.5, BUN 52, Cre 1.6, GFR 35, Ca 8.0 Meds noted: Colace -Encourage PO intake and honor food preferences within diet restrictions. -Offer nutrition supplements. -Monitor K+; may consider renal diet if remains elevated. -Monitor wt. -RD following.
--- NOTE | 2020-02-18 12:23 | NUR ---
0730-INCONTINENT OF LARGE LIQUID STOOL-ASSITED TO BEDSIDE COMMODE-A [id number] 110/78-REQUIRED MINIMAL ASSISTANCE-COCCYX DRG SATURED WITH STOOL/ FECES -DRG REMOVED-COMPLETE LINEN CHANGE AND MATTRESS CLEANING DONE-COMPLETE SKIN CARE DONE-DRG LEFT OFF COCCYX-RAMSEY CARE DONE-NOTED FECES IN PERINEAL AREA-COMPLETE CATH CARE AND PERINEAL CARE DONE-ASSISTED PT TO CHAIR-ENCOURAGED TO USE BEDSIDE COMMODE TO PREVENT UTI 0745-CALLED NURSE FOR ASSIST TO COMMODE-NO [id number] NURSE FOR ASSIST TO BEDSIDE COMMODE -NOTED GAS ONLY NO [id number] NURSE FOR ASSIST TO BEDSIDE COMMODE-NO [id number] FOR ASSIST -NOTED HR REMAINS AFLUTTER 115-120-O2 AT 2 L -NO CONFUSION-STATED AFRAID TO SOIL SELF 0930-AM MEDS GIVEN 944-DR MCKNIGHT AT BEDSIDE-CURRENT MED LIST GIVEN-MADE AWARE CARDIZEM OFF-AT THIS TIME-BETAPACE 120MG PO GIVEN ORDERED-REQUESTED CARDIZEM GTT STARTED AGAIN-PT REQUESTED ASSIST TO BEDSIDE [id number] NIBP 86/48-DR MCKNIGHT MADE AWARE-ORDER CHANGED TO NEOSYNEPHRINE GTT AND TITRATE FOR MEAN >60-PHARMACY NOTIFIED-PT ASSISTED BACK TO CHAIR-LEGS ELEVATED STRESSED NOT TO STAND UNTIL MEDICATION STARTS TO IMPROVE NIBP-74/56-NEOSYNEPHRINE DRIP STARTED AT 1MCG/MIN- 1100-NOTED NIBP INCREASED TO 104SYS MEAN OF 76-MAC DECREASED TO 0.5-KBRN 1145-LUNCH TRAY GIVEN TO PT -REMAINS A FLUTTER 113-NIBP-82/60 MEAN 67-MAC REMAINS AT 0.5
--- NOTE | 2020-02-18 14:09 | NUR ---
WOUND CARE AT BEDSIDE-DIRECTIONS GIVEN TO PT BY WOUND CARE NURSE-TO LAY ON SIDES FOR MAJORITY OF TIME-IF UP IN CHAIR TO REPOSITION OR STAND TO RELIEVE PRESSURE-PT APPEARED TO COMPREHEND 1400-UPDATE GIVEN TO DR SEXTON-CURRENT U/O HEART RHYTHM NIBP IV"S LAB-ORDER RECIEVED AND NOTED-ECHOCARDIOGRAM ORDERED-NOTED ALDACTONE D/C'D BY DR MCKNIGHT AT 1013
--- NOTE | 2020-02-18 14:17 | NUR ---
PT WAS ADMITTED ON 02/16/20 TO . IT IS NOTED THAT SHE HAD SKIN BREAKDOWN ON HER COCCYX IN THE [facility] CHAIR ASSESSMENT. THERE IS A STAGE 3 PRESSURE INJURY ON LEFT SIDE OF COCCYX/BUTTOCK THAT MEASURES 1CM X 1CM X 0.3CM AND ON COCCYX ANOTHER STAGE 3 PRESSURE INJURY MEASURING 1.5CM X 1CM X 0.3CM. SHE STATES THAT HER WAS APPLYING DESITIN OINTMENT WHILE AT HOME. WOUND CARE RECOMMENDS USING CALMOSEPTINE CREAM WHILE IN HOSPITAL AND WILL REQUEST AN AIR OVERLAY MATTRESS FOR HER BED. INSTRUCTED PT ON STAYING TURNED TO THE SIDE TO RELIEVE PRESSURE WHILE IN BED. SHE VOICED HER UNDERSTANDING. WOUND CARE WILL CONTINUE MONITORING.
--- NOTE | 2020-02-18 15:12 | NUR ---
DR CHILDERS AT BEDSIDE -UPDATE GIVEN-ORDER RECIEVED -STOP CARDIZEM GTT-NIBP 74 SYS-MAC INCREASED TO 0.2-HR 98 AFLUTTER VARIABLE
--- NOTE | 2020-02-18 15:15 | NUR ---
CARDIZEM GTT STOPPED MAC TITRATED UP TO 0.25-NIBP 92 SYS
--- NOTE | 2020-02-18 15:45 | NUR ---
CORDARONE INFUSION STARTED AT 1MG/MIN-FOR 6 H NIBP AT 90SYS MAC AT 0.3MCG
--- NOTE | 2020-02-18 17:49 | NUR ---
NOTED NIBP INCREASED TO 133/86-MAC LEFT AT 0.2MCG/MIN
--- NOTE | 2020-02-18 17:54 | MORECARE ---
CASE MANAGEMENT DISCHARGE SUMMARY PATIENT: LILIANE HOWARD UNIT: [id number] ADM DATE: 02/16/20 AGE: 55 : 61 SEX: F ROOM/BED: [facility] AUTHOR: ARNULFO BRYAN PHYSICIAN: REFERRING PHYSICIAN: SHUN MCKNIGHT MD DATE OF SERVICE: 02/18/20 Discharge Plan Patient Name: LILIANE HOWARD Facility: [facility]:[place] : 1965 Planned Disposition: Home Anticipated Discharge Date: Discharge Date: Expected LOS: Initial Reviewer: [email or web address] Initial Review Date: 02/16/2020 Generated: 02/18/20 6:54 pm Patient Name: LILIANE HOWARD Page [phone] at [phone] All edits/amendments must be made on the electronic document DICTATION DATE: 02/18/201753 MOTOR VEHICLE TECHNICIAN: NOAH 02/18/201753 RPT#: [id number] DC DATE: STATUS: ADM IN [facility] [address] [place] [address] END OF REPORT
--- NOTE | 2020-02-18 18:02 | MORECARE ---
CASE MANAGEMENT DISCHARGE SUMMARY PATIENT: LILIANE HOWARD UNIT: [id number] ADM DATE: 02/16/20 AGE: 55 : 61 SEX: F ROOM/BED: [facility] AUTHOR: ARNULFO BRYAN PHYSICIAN: REFERRING PHYSICIAN: SHUN MCKNIGHT MD DATE OF SERVICE: 02/18/20 Discharge Plan Patient Name: LILIANE HOWARD Facility: [facility]:[place] : 1965 Planned Disposition: Home Anticipated Discharge Date: Discharge Date: Expected LOS: Initial Reviewer: [id number] Initial Review Date: 02/16/2020 Generated: 02/18/20 7:02 pm Comments DCP- Discharge Planning Updated by [email or web address]: Lolly Hahn on 02/18/20 5:[address] Patient Name: LILIANE HOWARD Admission Status: Elective Accout number: [id number] Admission Date: 02-16-2020 : 1965 Admission Diagnosis:HYPERTENSIVE HEART DISEASE WITHOUT HEART FAILURE Attending: SHUN MCKNIGHT Current LOS: 2 Anticipated DC Date: Planned Disposition: Home Primary Insurance: [employer] Discharge Planning Comments: CM met with patient to complete initial dc planning assessment. CM educated patient on the CM role and verbal consent given by patient to complete assessment. Patient lives at home with her where she is independent with her care. At discharge patient plans to return home and feels this is a safe discharge. CM discussed availability of home health, rehab services, and medical equipment. Her daughter will be her otr owner operator truck driver home. Patient denied known discharge needs at this time. CM will continue to follow and will assist as needed with dc plans/needs. Painter Rough: Lolly Hahn DCPIA - Discharge Planning Initial Assessment Updated by [email or web address]: Lolly Hahn on 02/18/20 5:55 pm * Is the patient Alert and Oriented? Yes * How many steps to enter\exit or inside your home? * PCP REBECCA GRANDE * [facility] * Preadmission Environment Home with Family * ADLs Independent * Equipment Walker * List name and contact numbers for known caregivers / representatives who currently or will assist patient after discharge: FESTUS HOWARD - [facility] - [phone] * Verbal permission to speak to the caregivers and representatives has been obtained from the patient. Yes * Community resources currently utilized None * Additional services required to return to the preadmission environment? No * Can the patient safely return to the preadmission environment? Yes * Has this patient been hospitalized within the prior 30 days at any hospital? Yes Last DP export: 02/18/20 4:54 pm Patient Name: LILIANE HOWARD Page [phone] at 1802 All edits/amendments must be made on the electronic document DICTATION DATE: 02/18/201801 PROFESSOR OF FORESTRY: NOAH 02/18/201801 RPT#: [id number] DC DATE: STATUS: ADM IN [facility] [address] [place] [address] END OF REPORT
--- NOTE | 2020-02-18 19:00 | NUR ---
REPORT RECEIVED. RECEIVED PATIENT IN BED, RESTING WITH EYES CLOSED. ROUSES TO TACTILE STIMULI, ORIENTED X 4. SHIFT ASSESSMENT COMPLETED PER FLOW SHEET WITH NO ACUTE DISTRESS OBSERVED. MONITORS CONNECTED TO PATIENT WITH ALARMS SET. VSS. CONTINUES IV PRESSOR SUPPORT TITRATED TO EFFECT. CALL LIGHT IN REACH AND ABLE TO UTILIZE TO MAKE NEEDS KNOWN
--- NOTE | 2020-02-18 21:00 | NUR ---
RESTING WITH EYES CLOSED, EASILY ROUSED AND ALERT. VSS. CALL LIGHT IN REACH
--- NOTE | 2020-02-18 21:30 | NUR ---
SPOKE WITH DR. CHILDERS. UPDATED ON PATIENT BP 91/65 ON MAC ORDER RECEIVED TO HOLD SOTALOL .
--- NOTE | 2020-02-18 23:00 | NUR ---
AWAKE AND ALERT. VSS. REASSESSEMENT COMPLETED PER FLOW SHEET WITH NO ACUTE DISTRESS OBSERVED. CALL LIGHT IN REACH
[2020-02-19] VITALS (89 sets, daily range): BP systolic 78–137; BP diastolic 54–84
--- NOTE | 2020-02-19 03:00 | NUR ---
REASSESSMENT COMPLETED PER FLOW SHEET WITH NO ACUTE DISTRESS OBSERVED. VSS. CALL LIGHT IN REACH
--- NOTE | 2020-02-19 05:00 | NUR ---
RESTING WITH EYES CLOSED, EASILY ROUSED AND ALERT. VSS. CALL LIGHT IN REACH
[2020-02-19 05:52] LABS: BASOPHILS 0.2 % (0-2); EOSINOPHILS 0.2 % (0-7); HEMATOCRIT 31.6 % (36.0-48.0); HEMOGLOBIN 8.6 g/dL (12-16); IMMATURE GRANULOCYTES 0.3 % (0-5); LYMPHOCYTES 16.9 % (15-50); MCHC 27.2 g/dL (31.0-37.0); MCV 84.5 fL (80.0-100.0); MEAN PLATELET VOLUME 10.1 fL (7.4-10.4); NEUTROPHILS 66.4 % (40-80); RBC 3.74 10x6/uL (4.00-5.40); RDW 18.4 % (11.5-14.5); WBC 9.7 10x3/uL (4.8-10.8)
[2020-02-19 05:54] LABS: PLATELET COUNT 441 10x3/uL (130-400)
[2020-02-19 06:15] LABS: ANION GAP 11.5 mmol/L (8-16); CALCIUM 8.1 mg/dL (8.5-10.1); CARBON DIOXIDE 26.8 mmol/L (21.0-32.0); CREATININE - SERUM 1.6 mg/dL (0.6-1.3); POTASSIUM - SERUM 5.3 mmol/L (3.5-5.1)
--- NOTE | 2020-02-19 09:35 | NUR ---
0715-ASSISTED TO BEDSIDE CHAIR-WITH PERSITANCE-MAC GTT AT 0.4-CORDARONE AT 0.5MG-O2 AT 2L --STRESSED NEED TO LIMIT FLUID INTAKE-POOR COMPREHENSION- 0800-CALLED NURSE STATING CATHETER UNCOMFORTABLE WHILE SITTING -ENCOURAGED PT TO MOVE BUTTOCK BY STANDING SLIGHTLYFOR CATHETER POSITIONING-NOT COMPLIANT 0900-BREAKFEST TRAY COMPLETED-PENDING LOW LEVEL PHYSICAL THERAPY AND THEN ASSIST TO BED-AIR OVERLAY PLACED ON BED TO ATTEMPT TO DECREASE PT SKIN BREAKDOWN RESULTING BY POOR PT MOVEMENT-NOTHING IMPENDING PT MOVEMENT
--- NOTE | 2020-02-19 12:22 | NUR ---
1130-ASSISTED PT TO BED -PENDING ECHOCARDIOGRAM-DR CHILDERS AT BEDSIDE-STATUS REPORT NEOSYNEPHRINE AT 0.3-CORDARONE AT 0.5MG/MIN-PT ALERT-A FLUTTER VARIABLE RATE ON MONITOR
--- NOTE | 2020-02-19 14:39 | NUR ---
TO CT SCAN FOR CTA PE PROTOCOL-L PICC LINE -DR HE NOTIFIED OF CONSULT BY DR SEXTON
--- NOTE | 2020-02-19 16:50 | NUR ---
1515-RETURNED TO CVICU VIA WHEELCHAIR-ASSISTED TO BED-O2 AT 7Y-OUHAD-JST AT 0.2MCG-CORDARONE AT 0.5- 1520-DR HE AT BEDSIDE-SPOKE WITH PT REGARDING CURRENT CT FINDINGS AND POSSIBLE PLAN OF CARE AT THIS TIME-PT APPEARS TO COMPREHEND-ENCOURAGED PT TO TURN TO SIDE-POOR PARTICIPATION FROM PT-PT STATED L KNEE SORE-ENCOURAGED PT TO SELF POSITION FOR COMFORT-
--- NOTE | 2020-02-19 18:47 | NUR ---
1730-ULTRA SOUND AT BEDSIDE -SCDS OFF PT 1830-ULTRA SOUND COMPLETED
--- NOTE | 2020-02-19 18:52 | NUR ---
REQUESTED TO EAT DINNER TRAY AT LATER TIME
--- NOTE | 2020-02-19 19:00 | NUR ---
REPORT RECEIVED. RECEIVED PATIENT IN BED RESTING WITH EYES CLOSED. EASILY ROUSED AND ALERT. ORIENTED X 4. SHIFT ASSESSMENT COMPLETED PER FLOW SHEET WITH NO ACUTE DISTRESS OBSERVED. MONITORS CONNECTED TO PATIENT WITH ALARMS SET. VSS. CALL LIGHT IN REACH AND ABLE TO UTILIZE TO MAKE NEEDS KNOWN. WILL CONTINUE CURRENT POC
--- NOTE | 2020-02-19 23:00 | NUR ---
AWAKE AND ALERT. REASSESSMENT COMPLETED PER FLOW SHEET WITH NO ACUTE DISTRESS OBSERVED. VSS. CALL LIGHT IN REACH
--- NOTE | 2020-02-19 23:50 | NUR ---
RT AT BEDSIDE, PATIENT PLACED ON BIPAP PER ORDER. TOLERATING WELL. VSS
[2020-02-20] VITALS (44 sets, daily range): BP systolic 83–129; BP diastolic 57–93
--- NOTE | 2020-02-20 01:00 | NUR ---
RESTING WITH EYES CLOSED, ROUSES EASILY. CONTINUES ON BIPAP. VSS. CALL LIGHT IN REACH
--- NOTE | 2020-02-20 03:00 | NUR ---
REASSESSMENT COMPLETED PER FLOW SHEET WITH NO ACUTE DISTRESS OBSERVED. VSS. CALL LIGHT IN REACH
--- NOTE | 2020-02-20 05:00 | NUR ---
RESTING WITH EYES CLOSED, CONTINUES ON BIPAP. VSS. CALL LIGHT IN REACH
[2020-02-20 05:46] LABS: BASOPHILS 0.4 % (0-2); EOSINOPHILS 0.5 % (0-7); HEMATOCRIT 29.7 % (36.0-48.0); HEMOGLOBIN 8.4 g/dL (12-16); IMMATURE GRANULOCYTES 0.3 % (0-5); LYMPHOCYTES 16.2 % (15-50); MCH 23.6 pg (26.0-34.0); MCHC 28.3 g/dL (31.0-37.0); MCV 83.4 fL (80.0-100.0); MEAN PLATELET VOLUME 9.6 fL (7.4-10.4); NEUTROPHILS 66.6 % (40-80); RBC 3.56 10x6/uL (4.00-5.40); RDW 17.8 % (11.5-14.5); WBC 7.5 10x3/uL (4.8-10.8)
[2020-02-20 05:47] LABS: PLATELET COUNT 306 10x3/uL (130-400)
[2020-02-20 06:15] LABS: ALBUMIN 2.3 g/dL (3.4-5.0); BILIRUBIN - TOTAL 0.74 mg/dL (0.2-1.3); CALCIUM 8.1 mg/dL (8.5-10.1); CREATININE - SERUM 1.2 mg/dL (0.6-1.3); MAGNESIUM - SERUM 2.5 mg/dL (1.8-2.4); PHOSPHOROUS 3.9 mg/dL (2.5-4.9); PROTEIN - SERUM 6.3 g/dL (6.4-8.2)
[2020-02-20 07:47] LABS: BILIRUBIN NEGATIVE (NEGATIVE); GLUCOSE NEGATIVE (NEGATIVE); KETONE NEGATIVE (NEGATIVE); NITRITE NEGATIVE (NEGATIVE); SPECIFIC GRAVITY 1.015 (1.005-1.020); UROBILINOGEN NORMAL (NORMAL)
[2020-02-20 07:49] LABS: BACTERIA FEW /hpf (NEGATIVE); EPITHELIAL CELLS 0-5 /hpf (0-5); RED CELLS - URINE 0-5 /hpf (0-5); WHITE CELLS - URINE 0-5 /hpf (NEGATIVE)
--- NOTE | 2020-02-20 07:57 | NUR ---
LETHARGIC SLOW TO RESPOND-URINALYSIS SENT-PT ABLE TO FOLLOW ALL DIRECTION-LESS ANIMATED THAN PRIOR ASSESSMENTS
--- NOTE | 2020-02-20 09:08 | NUR ---
0815-INCONTINENT OF LARGE AMOUNT OF STOOL-NOTED CATHETER TUBE-FECES ON TUBING INTO PERINEAL AREA-PT GUARDING AND NOT ALLOWING TO CLEAN AREA-EXPLAINED TO PT BY TWO NURSES IMPERATIVE NEED TO CLEAN CATHETER TUBE CORRECTLY-IMPROVED COOPERATION-CALMOSEPTIME REAPPLIED TO SKIN-PT RELUCTANT TO TURN SELF-REQUIRED STRONG INSISTANCE FROM STAFF-REPOSITIONED TO R SIDE WITH BACK PILLOW SUPPORT-AIR OVERLAY IN PLACE
--- NOTE | 2020-02-20 13:11 | NUR ---
1230-DR CHILDERS AT BEDSIDE-SPOKE WITH PT REGARDING STATUS AND PLAN OF ACTION-DISCUSSED SAME WITH DR SEXTON-PORT CXR DONE-ASSISTED TO BEDSIDE COMMODE
--- NOTE | 2020-02-20 13:22 | NUR ---
SMALL STOOL -ASSISTED TO BEDSIDE CHAIR-DR HE IN UNIT
--- NOTE | 2020-02-20 13:45 | NUR ---
DR HE AT BEDSIDE-STRESSED TO PT THE NEED OF BIPAP -PT REFUSING BIPAP-STATED IT DOESN'T HELP-MAKES ME VERY ANXIOUS-CONTINUED STRESSED FOR HER BENEFIT -PT NOT CONCEDING ASSISTED PT TO BED HEAD ELEVATED
--- NOTE | 2020-02-20 16:06 | NUR ---
BROUGHT XANAX TO PT FOR PREMED BIPAP-BECAME VERY ANGRY STATED THIS NOT RIGHT -I HAVE TO TALK TO MY -ATTEMPTED TO USE CELL PHONE-BATTERY -BECAME ANGRY -PLUGGED PHONE FOR PT AND ASSURED WILL NOT PLACE ON BIPAP UNTIL SPEAKS WITH -STRONGLY RECOMMENDED BIPAP -PT REFUSED XANAX AT THIS TIME-I NEED TO TALK TO MY FIRST BEFORE A TAKE ANYTHING-
--- NOTE | 2020-02-20 18:58 | NUR ---
C/O OF SEVERE HEAD ACHE-STATES 01/27-ENCOURAGED TO USE BIPAP-HEADACHE LIKELY DUE TO HIGH CO2 LEVEL-SOTO = STRONG-PUPILS EQUAL -SPEECH CLEAR-FACIAL SYMETRICAL-REFUSES AT THIS TIME-STATED IF HEADACHE NOT RELIEVED WILL CONSIDER IT-PERCOCET 5 -AND COLD CLOTH
--- NOTE | 2020-02-20 19:21 | NUR ---
PT RECEIVED WITH EYES OPEN. NO NEEDS MADE KNOWN AT THIS TIME. VITAL SIGNS STABLE. CALL LIGHT IN REACH. WILL CONTINIUE TO OBSERVE.
--- NOTE | 2020-02-20 21:21 | NUR ---
PT RECEIVED MEDICATIONS PER MAR. REFUSES BIPAP, EXPLAINED THE NEED AND THAT THERE IS PRN XANAX TO HELP WITH THE ANXIETY, CONTINUED REFUSAL.
--- NOTE | 2020-02-20 23:18 | NUR ---
PT UP TO BEDSIDE COMMODE WITH GAS ONLY NOTED. MODERATE ASSIST STANDING AND PARTIAL AMBULATING TO AND FORM COMMODE. PAIN MEDICATION GIVEN PER DEC. PT REPOSITIONED FOR COMFORT. WILL CONTINE TO OBSERVE. CALL LIGHT IN REACH.
[2020-02-21] VITALS (26 sets, daily range): BP systolic 86–145; BP diastolic 57–120
--- NOTE | 2020-02-21 01:53 | NUR ---
PT SPO2 DROPPED TO 86%, WENT TO ASSESS, N/C OFF AND REPLACED. SPO2 98% WHEN LEFT ROOM. PT WAS ANXIOUS, ASSIST GIVEN TO PULL UP IN BED AND HOB RAISED TO 40 DEGREES PER PT REQUEST, PT QUICKLY CLOSING EYES AND GOING TO SLEEP. WILL CONTINUE TO OBSERVE.
--- NOTE | 2020-02-21 03:27 | NUR ---
PT RESTING WITH EYES CLOSED AND CHEST RISING. NO S/S OF DISTRESS AT THIS TIME. PT YELLS OUT AT TIMES AND WHEN ASSESSED PT SLEEPING. AWAKENS TO VERBAL STIMULI. CALL LIGHT IN REACH. WILL CONTINUE TO OBSERVE.
[2020-02-21 05:58] LABS: BASOPHILS 0.2 % (0-2); EOSINOPHILS 0.2 % (0-7); HEMATOCRIT 27.9 % (36.0-48.0); HEMOGLOBIN 7.7 g/dL (12-16); LYMPHOCYTES 17.3 % (15-50); MCH 22.9 pg (26.0-34.0); MCHC 27.6 g/dL (31.0-37.0); MEAN PLATELET VOLUME 10.1 fL (7.4-10.4); MONOCYTES 13.2 % (2-11); NEUTROPHILS 69.1 % (40-80); RBC 3.36 10x6/uL (4.00-5.40); RDW 17.5 % (11.5-14.5)
[2020-02-21 06:26] LABS: ALBUMIN 2.6 g/dL (3.4-5.0); ALKALINE PHOSPHATASE 66 U/L (30-120); ALT (SGPT) 23 U/L (10-68); BILIRUBIN - TOTAL 0.81 mg/dL (0.2-1.3); CALCIUM 8.4 mg/dL (8.5-10.1); CARBON DIOXIDE 30.8 mmol/L (21.0-32.0); CHLORIDE - SERUM 99 mmol/L (98-107); GLUCOSE 208 mg/dL (74-106); MAGNESIUM - SERUM 2.2 mg/dL (1.8-2.4); PROTEIN - SERUM 6.1 g/dL (6.4-8.2); SODIUM 136 mmol/L (136-145)
[2020-02-21 06:30] LABS: CALC OSMOLALITY 288 mosm/kg (275-300); CREATININE - SERUM 0.8 mg/dL (0.6-1.3); PHOSPHOROUS 2.9 mg/dL (2.5-4.9); POTASSIUM - SERUM 4.2 mmol/L (3.5-5.1); UREA NITROGEN 43 mg/dL (7-18); WBC 4.2 10x3/uL (4.8-10.8); eGFR NON AFRICAN AMERICAN 78 mL/min (90-120)
[2020-02-21 06:31] LABS: PLATELET COUNT 229 10x3/uL (130-400)
--- NOTE | 2020-02-21 08:53 | NUR ---
SPOKE WITH GHAZAL FREGOSO WITH DR. WALLACE. AWARE OF ECHO RESULTS. GIVE 2 UNITS PRBC'S AND 20MG LASIX IN BETWEEN UNITS.
--- NOTE | 2020-02-21 09:27 | NUR ---
Nutrition Follow-up: Pt continues to report poor PO intake. Denies N/V. Loose BM this AM. Diet: Cardiac PO intake: 50% x 6 meals (02/18-02/19) Wt: 304.5# (02/19); 298.7# (02/17); 299.8# (02/15) Labs noted: Glu 208, Ca 8.4, Alb 2.6 Meds noted: Lasix, Albumin, Colace -Encourage PO intake and honor food preferences within diet restrictions. -Offer nutrition supplements. -Monitor wt. -RD following.
--- NOTE | 2020-02-21 09:48 | NUR ---
AMBULATED WITH PHYSICAL THERAPY. ASSISTED UP TO BEDSIDE COMMODE. LARGE BROWN, FORMED STOOL NOTED.
--- NOTE | 2020-02-21 10:06 | NUR ---
LAB CALLED TO CHECK ON PRBC'S. WAITING ON TYPE AND SCREEN.
--- NOTE | 2020-02-21 13:00 | NUR ---
PT TRANSFERRED INTO BED. TOLERATED WELL. ABOUT TO START BLOOD TRANSFUSION. WILL CONTINUE TO MONITOR
--- NOTE | 2020-02-21 19:00 | NUR ---
SHIFT ASSESSMENT COMPLETED. PT CARE ASSUMED, MONITORS ON AND WORKING, PT AWAKE AND ALERT, NO SIGNS/SYMPTOMS OF PAIN OR DISCOMFORT NOTED. CALL LIGHT WITHIN REACH, WILL CONTINUE TO OBSERVE.
--- NOTE | 2020-02-21 21:00 | NUR ---
ASSISTED PT BACK IN BED, PT TOLERATED WELL. MONITORS ON AND WORKING, PT AWAKE AND ALERT, CALL LIGHT WITHIN REACH, WILL CONTINUE TO OBSERVE.
--- NOTE | 2020-02-21 23:00 | NUR ---
PT REQUESTED TO SIT UP IN CHAIR, PT ASSISTED INTO CHAIR WITH MINIMAL ASSISTANCE,. MONITORS ON AND WORKING, VITALS STABLE, CALL LIGHT WITHIN REACH, SEE FLOW SHEET FOR FURTHER DETAILS. WILL CONTINUE TO OBSERVE.
[2020-02-22] VITALS (34 sets, daily range): BP systolic 96–170; BP diastolic 37–97
--- NOTE | 2020-02-22 01:00 | NUR ---
PT ASSISTED BACK INTO BED, PT TOLERATED WELL. MONITORS ON AND WORKING, VITALS STABLE, CALL LIGHT WITHIN REACH, WILL CONTINUE TO OBSERVE.
--- NOTE | 2020-02-22 03:00 | NUR ---
PT LYING IN BED RESTING, MONITORS ON AND WORKING, CALL LIGHT WITHIN REACH, SEE FLOW SHEET FOR FURTHER DETAILS, WILL CONTINUE TO OBSERVE.
--- NOTE | 2020-02-22 05:00 | NUR ---
PT SITTING UP IN CHAIR, CHG BATH AND LINEN CHANGE COMPLETED. MONITORS ON AND WORKING, VITALS STABLE. CALL LIGHT WITHIN REACH, WILL CONTINUE TO OBSERVE.
--- NOTE | 2020-02-22 07:00 | NUR ---
RECEIVED BEDSIDE REPORT ON PATIENT. PATIENT SITTING UP AT BEDSIDE, VSS. ALERT AND ORIENTED X 4. IV AMIODARONE AT 0.5 MG/HR (16.7 ML/HR) INFUSING TO LEFT UPPER ARM PICC LINE. HR - 92, IRRREGUALR, A-FIB ON CM. BBS - CLEAR AND EQUAL DIMINISHED IN THE BASES, SPO2 - 96% ON 2 LPM 02 VIA NC. RAMSEY CATH IN PLACE WITH CLEAR JOSE M UOP NOTED. HEAD TO TOE ASSESSMENT COMPLETED.
--- NOTE | 2020-02-22 07:00 | NUR ---
pt home meds sent to pharmacy, pt aware, white copy in pt chart. pt awake and alert, call light within reach, will continue to observe.
--- NOTE | 2020-02-22 08:00 | NUR ---
PATIENT GIVEN BREAKFAST TRAY. VSS.
--- NOTE | 2020-02-22 08:30 | NUR ---
ASSISTED TO BEDSIDE COMMODE, PASSED GAS BUT NO BM. ASSISTED BACK TO BEDSIDE CHAIR. VSS.
--- NOTE | 2020-02-22 08:51 | NUR ---
PATIENT ATE 100% OF BREAKFAST TRAY. VSS. NO NEEDS AT THIS TIME.
--- NOTE | 2020-02-22 10:19 | NUR ---
MILRINONE BOLUS STARTED PER ORDER AT 50 MCG/KG (PER DR. MCKNIGHT USE 90KG FOR PATIENTS WEIGHT) AT 135 ML/HR (22.5 ML) OVER 10 MINUTES. NEOSYNEPHRINE HUNG AND ON PAUSE IF NEEDED. VSS.
--- NOTE | 2020-02-22 10:33 | NUR ---
MILRINONE BOLUS COMPLETED, HR - 110-120 A-FIB, DR. DAWKINS RN NOTIFIED OF RATE. VSS. MILRINONE INFUSING AT 0.375 MCG/KG/MIN (9.3 ML/HR).
--- NOTE | 2020-02-22 14:21 | NUR ---
DR. ELLIS AT ROOM UPDATED AND EXAMINES PATIENT, STATES HE INTENDS TO CARDIOVERT PATIENT TOMORROW.
--- NOTE | 2020-02-22 14:58 | NUR ---
PATIENT RESTING QUIETLY, EASILY AROUSED BY VOICE. REASSESSMENT COMPLETED. VSS.
--- NOTE | 2020-02-22 16:46 | NUR ---
PATIENT GIVEN DINNER TRAY AND ASSISTED WITH SETUP. VSS.
--- NOTE | 2020-02-22 19:00 | NUR ---
REPORT RECEIVED. PT RESTING IN BED, NO ACUTE DISTRESS NOTED. ASSESSMENT COMPLETED, SEE FLOWSHEET. PICC IN LEFT UPPER ARM INFUSING, SEE IV FLOWSHEET. WILL CONTINUE TO MONITOR.
--- NOTE | 2020-02-22 21:00 | NUR ---
PM MEDS TAKEN WITHOUT DIFFICULTY.
--- NOTE | 2020-02-22 23:00 | NUR ---
REASSESSMENT COMPLETED, NO ACUTE DISTRESS NOTED.
[2020-02-23] VITALS (56 sets, daily range): BP systolic 104–146; BP diastolic 60–101
--- NOTE | 2020-02-23 07:00 | NUR ---
IN BED SLEEPING, AWAKES EASILY. DENIES PAIN SKIN WARM AND DRY. IV LEFT UPPER ARM PICC INFUSING WITH CARDIZEM AT 5 MG/HR, MILRINONE AT 0.345 MCG/KG/MIN. RAMSEY CATH PATENT DRAINING DARK JOSE M URINE. HEAD OF BED ELEVATED 30 DEGREES. CALL LIGHT WITHIN HANDS REACH. UNDERSTANDS SHE IS NPO FOR CARDIOVERSION TODAY. NO QUESTION ASKED
--- NOTE | 2020-02-23 09:00 | NUR ---
AMBULATED IN MARS PER PHYSICAL THERAPY. UP IN CHAIR AT BEDSIDE. NO DISTRESS. DOES BECOME SHORT OF BREATH WHEN AMBULATING.
--- NOTE | 2020-02-23 09:50 | NUR ---
Nutrition Follow-up: Noted cardiology planning cardioversion. PO intake fluctuating (0-100%). Diet: NPO PO intake: 55% avg x 9 meals Wt: 304# (02/21); 304.5# (02/19); 299.8# (02/15) No new labs Meds noted: Albumin, Colace -Rec resume diet when medically feasible. -Encourage PO intake and honor food preferences within diet restrictions. -Offer nutrition supplements; will discuss Adrian with pt 2/2 wound. -Monitor wt. -RD following.
--- NOTE | 2020-02-23 11:00 | NUR ---
DR. CARRERO AND ANESTHIA HERE TO CARDIOVERT PATIENT.
--- NOTE | 2020-02-23 11:30 | NUR ---
PATIENT IN SINUS RHYTHM WAKES UP TO VERBAL STIMULI. NO DISTRESS
--- NOTE | 2020-02-23 13:30 | NUR ---
NAPPING IN BED. NO DISTRESS. SOME BURNING IN CHEST WHERE PADS WHERE. MONITOR SR. LUNCH TRAY SERVED ATE WELL. TAKING PO FLUIDS WELL
--- NOTE | 2020-02-23 15:30 | NUR ---
UP ON BEDSIDE COMMODE. PASSING GAS. UP IN CHAIR AT BEDSIDE. SHORTNESS OF BREATH NOTED FOR TRANSFERED.
--- NOTE | 2020-02-23 17:00 | NUR ---
REFUSED DINNER TRAY. STATES SHE ATE WELL AT LUNCH.
--- NOTE | 2020-02-23 18:15 | NUR ---
AMBULATED TO BED WITH ASSISTANCES. GAIT UNSTEADY. RAMSEY CATH WITH CONCENTRATED URINE. SHORTNESS OF BREATH WITH AMBULATION. CHEST INCISIONS HEALED. CHEST IS TENDER TO TOUCH. CALL LIGHT WITHIN HANDS REACH. HEAD OF BED ELEVATED 30 DEGREES.
--- NOTE | 2020-02-23 19:30 | NUR ---
PT A/OX4, LUNGS CLEAR, 02 @ 4.5L VIA N/C, MIDSTERNAL INCISION HEALING WELL, ROXY PATENT TO BSD, ROSEMARY'S AND SCD'S TO BILAT LOWER LEGS, VITALS STABLE, NO C/O @ THIS TIME
--- NOTE | 2020-02-23 21:15 | NUR ---
PT AWAKE, TALKING OM PHONE, GIVEN ICE CREAM PER PT REQUEST, WILL CONT TO MONITOR
--- NOTE | 2020-02-23 23:15 | NUR ---
RESTING QUIETLY WITH BIPAP IN USE, VITALS STABLE
[2020-02-24] VITALS (13 sets, daily range): BP systolic 103–134; BP diastolic 67–89
--- NOTE | 2020-02-24 01:00 | NUR ---
PT AWAKE WATCHING TV WITH NASAL CANULA IN USE, WILL CONT TO MONITOR
--- NOTE | 2020-02-24 03:15 | NUR ---
pt sleeping with no distress noted, vitals stable
--- NOTE | 2020-02-24 04:15 | NUR ---
pt placed back on bipap, no distress noted
--- NOTE | 2020-02-24 04:50 | NUR ---
pt wants bipap off, placed on nasal canula @ 3l, will cont to monitor
[2020-02-24 05:37] LABS: ALBUMIN 2.7 g/dL (3.4-5.0); ANION GAP 2.9 mmol/L (8-16); BILIRUBIN - TOTAL 0.83 mg/dL (0.2-1.3); CALCIUM 8.6 mg/dL (8.5-10.1); CARBON DIOXIDE 36.4 mmol/L (21.0-32.0); CREATININE - SERUM 0.9 mg/dL (0.6-1.3); MAGNESIUM - SERUM 1.8 mg/dL (1.8-2.4); POTASSIUM - SERUM 4.3 mmol/L (3.5-5.1); PROTEIN - SERUM 5.9 g/dL (6.4-8.2)
[2020-02-24 06:34] LABS: BASOPHILS 0.4 % (0-2); EOSINOPHILS 1.8 % (0-7); HEMATOCRIT 33.6 % (36.0-48.0); HEMOGLOBIN 9.4 g/dL (12-16); IMMATURE GRANULOCYTES 0.7 % (0-5); LYMPHOCYTES 19.9 % (15-50); MCH 24.4 pg (26.0-34.0); MEAN PLATELET VOLUME 9.7 fL (7.4-10.4); MONOCYTES 13.8 % (2-11); NEUTROPHILS 63.4 % (40-80); PLATELET COUNT 239 10x3/uL (130-400); RBC 3.86 10x6/uL (4.00-5.40); RDW 18.3 % (11.5-14.5); WBC 4.6 10x3/uL (4.8-10.8)
--- NOTE | 2020-02-24 07:00 | NUR ---
PT REPORT RECEIVED FROM FIBER DESIGN ENGINEER NURSE. NO ACUTE SIGNS OF DISTRESS NOTED. SHIFT ASSESSMENT COMPLETED. PT SLEEPING IN BED. WILL CONTINUE TO MONITOR
--- NOTE | 2020-02-24 09:25 | NUR ---
PHYSICAL THERAPY IN ROOM AMBULATING PT. PT TOLERATING WELL. WILL CONTINUE TO MONITOR
--- NOTE | 2020-02-24 10:08 | NUR ---
ASSISTED PT UP TO BEDSIDE COMMODE. NO BM JUST GAS. ASSISTED BACK TO CHAIR.
--- NOTE | 2020-02-24 12:21 | NUR ---
DR HICKS IN ROOM. WILL CONTINUE TO MONITOR
[2020-02-24] MEDS ORDERED: ALDACTONE25 MG PO (12:25)
[2020-02-24] MEDS ORDERED: FUROSEMIDE20 MG PO (12:26)
[2020-02-24] MEDS ORDERED: LANOXIN125 MCG PO (12:28)
[2020-02-24] MEDS ORDERED: AMIODARONE HCL200 MG PO (12:41)
[2020-02-24] MEDS ORDERED: AMOXICILLIN875 MG PO (12:52)
--- NOTE | 2020-02-24 14:00 | NUR ---
SPOKE WITH UROLOGY CLINIC TO TRY TO SET UP FOLLOW UP APPOINTMENT WITH DR JOAQUIN. LEFT NAME AND NUMBER TO [facility] FOR CALLBACK TO VERIFY APPOINTMENT.
--- NOTE | 2020-02-24 14:15 | NUR ---
PHYSICAL THERAPY IN ROOM TO WALK PT WITHOUT OXYGEN. PT OXYGEN SAT AT 93-94 ON ROOM AIR RESTING IN CHAIR. WHILE AMBULATING O2 SAT DROPPED TO LOWER 80'S. PT SAT IN WHEEL CHAIR AND WHEELED BACK TO ROOM. O2 ON AT 2LNC O2 SATS BACK UP TO 93. MARQUISE MCKNIGHT'S RN NOTIFIED. DR RUTHANN PIMENTEL.
--- NOTE | 2020-02-24 14:16 | OP ---
PATIENT NAME: LILAINE RIVAS MEDICAL RECORD: [id number] :61 [facility] ADMISSION DATE:02/16/20 SURGEON: NAVEED HICKS MD DATE OF OPERATION: 02/23/2020 PROCEDURE: Cardioversion. SUMMARY OF PROCEDURE: After general sedation via TIVA via anesthesia initial shock at 200 joules was unsuccessful. Second shock at 300 joules synchronized restored atrial fibrillation to normal sinus rhythm. IMPRESSION: Successful cardioversion on Liliane Rivas. During the procedure, the patient was monitored continuously with pulse oximetry, telemetry and continuous blood pressure monitoring. No complications noted. TRANSINT:[id number] Voice Confirmation ID: [id number] DOCUMENT ID: [id number] NAVEED HICKS MD at 1416 CC: [id number] DICTATION DATE: 02/23/20 1113 CARTOGRAPHY TECHNICIAN: 02/23/20 1242 ADM IN [place] [id number] [place] [address]
--- NOTE | 2020-02-24 15:12 | NUR ---
PICC LINE REMOVED WITH CATH INTACT AT 52CM, NO REDNESS OR SWELLING NOTED, PT TOLERATED WELL
--- NOTE | 2020-02-24 15:54 | NUR ---
PT WHEELED OUT TO PERSONAL VEHICLE. PT TOLERATED TRANSITION TO CAR WELL. TIME OF DISCHARGE [id number]
--- NOTE | 2020-02-24 19:21 | MORECARE ---
CASE MANAGEMENT DISCHARGE SUMMARY PATIENT: LILIANE HOWARD UNIT: [id number] ADM DATE: 02/16/20 AGE: 55 : 61 SEX: F [facility] AUTHOR: IRVIN,ARNULFO PHYSICIAN: REFERRING PHYSICIAN: SHUN MCKNIGHT MD DATE OF SERVICE: 02/24/20 Discharge Plan Patient Name: LILIANE HOWARD Facility: [facility]:[place] : 1965 Planned Disposition: Home Anticipated Discharge Date: Discharge Date: 02/24/2020 Expected LOS: Initial Reviewer: [email or web address] Initial Review Date: 02/16/2020 Generated: 02/24/20 8:21 pm Comments DCP- Discharge Planning Updated by [email or web address]: Lolly Hahn on 02/24/20 6:[address] PATIENT IS REQUIRING 02 WITH AMBULATION WALK TEST COMPLETED CM FAXED RECORDS TO [facility] FOR HOME AND PORTABLE 02. [facility] DELIVERED TANK TO PATIENT ROOM AND WILL DELIVER CONCENTRATOR TO PATIENT'S HOME. DCP- Discharge Planning Updated by [email or web address]: Lolly Hahn on 02/18/20 5:[address] Patient Name: LILIANE HOWARD Admission Status: Elective Accout number: [id number] Admission Date: 02-16-2020 : 1965 Admission Diagnosis:HYPERTENSIVE HEART DISEASE WITHOUT HEART FAILURE Attending: SHUN MCKNIGHT Current LOS: 2 Anticipated DC Date: Planned Disposition: Home Primary Insurance: [employer] Discharge Planning Comments: CM met with patient to complete initial dc planning assessment. CM educated patient on the CM role and verbal consent given by patient to complete assessment. Patient lives at home with her where she is independent with her care. At discharge patient plans to return home and feels this is a safe discharge. CM discussed availability of home health, rehab services, and medical equipment. Her daughter will be her driver operator home. Patient denied known discharge needs at this time. CM will continue to follow and will assist as needed with dc plans/needs. Batter Mixer: Lolly Hahn DCPIA - Discharge Planning Initial Assessment Updated by [email or web address]: Lolly Hahn on 02/18/20 5:55 pm * Is the patient Alert and Oriented? Yes * How many steps to enter\exit or inside your home? * PCP REBECCA GRANDE * [facility] * Preadmission Environment Home with Family * ADLs Independent * Equipment Walker * List name and contact numbers for known caregivers / representatives who currently or will assist patient after discharge: FESTUS HOWARD - SPOUSE - [phone] * Verbal permission to speak to the caregivers and representatives has been obtained from the patient. Yes * Community resources currently utilized None * Additional services required to return to the preadmission environment? No * Can the patient safely return to the preadmission environment? Yes * Has this patient been hospitalized within the prior 30 days at any hospital? Yes Last DP export: 02/18/20 5:02 pm Patient Name: LILIANE HOWARD Page [id number] at 1921 All edits/amendments must be made on the electronic document DICTATION DATE: 02/24/201920 RUBBER CUTTING MACHINE TENDER: NOAH 02/24/201920 RPT#: [id number] DC DATE:02/24/20 STATUS: DIS IN [facility] [address] [place] [address] END OF REPORT
--- NOTE | 2020-02-25 22:07 | MORECARE ---
CASE MANAGEMENT DISCHARGE SUMMARY PATIENT: LILIANE HOWARD UNIT: [id number] ADM DATE: 02/16/20 AGE: 55 : 61 SEX: F [facility]: IRVIN,ARNULFO PHYSICIAN: REFERRING PHYSICIAN: SHUN MCKNIGHT MD DATE OF SERVICE: 02/25/20 Discharge Plan Patient Name: LILIANE HOWARD Facility: [facility]:[place] : 1965 Planned Disposition: Home Anticipated Discharge Date: Discharge Date: 02/24/2020 Expected LOS: Initial Reviewer: [email or web address] Initial Review Date: 02/16/2020 Generated: 02/25/20 11:06 pm Comments DCP- Discharge Planning Updated by [email or web address]: Lolly Hahn on 02/24/20 6:[address] PATIENT IS REQUIRING 02 WITH AMBULATION WALK TEST COMPLETED CM FAXED RECORDS TO [facility] FOR HOME AND PORTABLE 02. [facility] DELIVERED TANK TO PATIENT ROOM AND WILL DELIVER CONCENTRATOR TO PATIENT'S HOME. DCP- Discharge Planning Updated by [email or web address]: Lolly Hahn on 02/18/20 5:[address] Patient Name: LILIANE HOWARD Admission Status: Elective Accout number: [id number] Admission Date: 02-16-2020 : 1965 Admission Diagnosis:HYPERTENSIVE HEART DISEASE WITHOUT HEART FAILURE Attending: SHUN MCKNIGHT Current LOS: 2 Anticipated DC Date: Planned Disposition: Home Primary Insurance: [employer] Discharge Planning Comments: CM met with patient to complete initial dc planning assessment. CM educated patient on the CM role and verbal consent given by patient to complete assessment. Patient lives at home with her where she is independent with her care. At discharge patient plans to return home and feels this is a safe discharge. CM discussed availability of home health, rehab services, and medical equipment. Her daughter will be her commercial relief driver home. Patient denied known discharge needs at this time. CM will continue to follow and will assist as needed with dc plans/needs. Printed Circuit Board Assembly Repairer: Lolly Hahn DCPIA - Discharge Planning Initial Assessment Updated by [email or web address]: Lolly Hahn on 02/18/20 5:55 pm * Is the patient Alert and Oriented? Yes * How many steps to enter\exit or inside your home? * PCP REBECCA GRANDE * [facility] * Preadmission Environment Home with Family * ADLs Independent * Equipment Walker * List name and contact numbers for known caregivers / representatives who currently or will assist patient after discharge: FESTUS HOWARD - SPOUSE - [phone] * Verbal permission to speak to the caregivers and representatives has been obtained from the patient. Yes * Community resources currently utilized None * Additional services required to return to the preadmission environment? No * Can the patient safely return to the preadmission environment? Yes * Has this patient been hospitalized within the prior 30 days at any hospital? Yes Last DP export: 02/24/20 6:21 pm Patient Name: LILIANE HOWARD Page 36976 at 2207 All edits/amendments must be made on the electronic document DICTATION DATE: 02/25/202205 KST OPERATOR: NOAH 02/25/202205 RPT#: [id number] DC DATE:02/24/20 STATUS: DIS IN [facility] [address] [place] [address] END OF REPORT
== END 2020-02-24 15:54 | disposition home or self-care (01) | DRG 308 ==
LOC: D.RAD 11:15 → D.CVICU 12:50
PROVIDERS: Internal Medicine Interventional Cardiology; Internal Medicine Pulmonary Disease; ADMIT Thoracic Surgery (Cardiothoracic Vascular Surgery); ATTEND Thoracic Surgery (Cardiothoracic Vascular Surgery)
PROC: 05HY33Z Insertion of Infusion Device into Upper Vein, Percutaneous Approach (ICD-10-PCS; principal; 2020-02-16)
DX: I48.91 Unspecified atrial fibrillation (principal); J96.01 Acute respiratory failure with hypoxia; I50.23 Acute on chronic systolic (congestive) heart failure; N17.9 Acute kidney failure, unspecified; Z68.42 Body mass index [BMI] 45.0-49.9, adult; I11.9 Hypertensive heart disease without heart failure; I43 Cardiomyopathy in diseases classified elsewhere; I48.92 Unspecified atrial flutter; E87.5 Hyperkalemia; E66.01 Morbid (severe) obesity due to excess calories; D64.9 Anemia, unspecified

== ENCOUNTER → 2020-02-28 14:22 | Outpatient (CLI) | payer OTHER ==
[2020-02-17 13:53] VITALS: BMI 48.2
[~2020-02-28 14:22] MED LIST changes: +ALDACTONE25 MG PO; +AMIODARONE HCL200 MG PO; +AMOXICILLIN875 MG PO; +FUROSEMIDE20 MG PO; +LANOXIN125 MCG PO; +XARELTO20 MG PO
[2020-02-28 14:53] LABS: HEMATOCRIT 38.1 % (36.0-48.0); LYMPHOCYTES 13.2 % (15-50); MCH 24.1 pg (26.0-34.0); MCHC 28.9 g/dL (31.0-37.0); MCV 83.4 fL (80.0-100.0); MEAN PLATELET VOLUME 10.2 fL (7.4-10.4); NEUTROPHILS 74.1 % (40-80); PLATELET COUNT 227 10x3/uL (130-400); RBC 4.57 10x6/uL (4.00-5.40); RDW 19.1 % (11.5-14.5); WBC 7.8 10x3/uL (4.8-10.8)
[2020-02-28 15:00] LABS: ANION GAP 7.9 mmol/L (8-16); CALCIUM 8.5 mg/dL (8.5-10.1); CARBON DIOXIDE 33.7 mmol/L (21.0-32.0); CREATININE - SERUM 0.9 mg/dL (0.6-1.3); POTASSIUM - SERUM 4.6 mmol/L (3.5-5.1)
== END | disposition home or self-care (01) ==
LOC: D.LAB 14:22
PROVIDERS: ATTEND Orthopaedic Surgery
DX: R06.00 Dyspnea, unspecified (principal)

== ENCOUNTER → 2020-03-15 10:24 | Outpatient (CLI) | payer OTHER ==
[2020-02-17 13:53] VITALS: BMI 48.2
== END | disposition home or self-care (01) ==
LOC: D.RT 10:24
PROVIDERS: ATTEND Thoracic Surgery (Cardiothoracic Vascular Surgery)
DX: I48.91 Unspecified atrial fibrillation (principal)